=== PATIENT | female | born 1995 | race Caucasian/White ===

== ENCOUNTER 2017-03-04 23:05 | Inpatient (IN) | payer OTHER ==
[~2017-03-04] VITALS: Ht 162.6 cm; Wt 90.7 kg
[~2017-03-04 23:05] MED LIST: LYSTEDA650 M1 PO
[2017-03-04 23:58] LABS: ABSOLUTE BASOPHIL COUNT 0 /CUMM (0.0-0.2); ABSOLUTE EOSINOPHIL COUNT 0 /CUMM (0.0-0.7); ABSOLUTE GRANULOCYTE CT 7.8 /CUMM (1.4-6.5); ABSOLUTE LYMPH COUNT 2.1 /CUMM (1.2-3.4); ABSOLUTE MONOCYTE COUNT 0.6 /CUMM (0.10-0.60); BASOPHIL % 0.3 % (0.0-2.0); EOSINOPHIL % 0.4 % (0-5); GRANULOCYTE % 73.4 % (42.2-75.2); HEMATOCRIT 24.1 % (37-47); MEAN CORPUSCULAR HGB 19.3 PG (27.0-31.0); MEAN CORPUSCULAR HGB CONC 31.2 G/DL (33.0-37.0); MEAN CORPUSCULAR VOLUME 61.7 FL (81.0-99.0); MEAN PLATELET VOLUME 7.4 FL (7.4-10.4); PLATELET COUNT 287 /CUMM (130-400); RBC DISTRIBUTION WIDTH 17.8 % (11.5-14.5); RED BLOOD CELL CT 3.91 /CUMM (4.20-5.40); WHITE BLOOD CELL COUNT 10.6 /CUMM (4.8-10.8)
[2017-03-05 02:22] VITALS: BP 112/54
--- NOTE | 2017-03-05 05:10 | History & Physical ---
General Information and HPI MD Statement: I have seen and personally examined JOE MULLIGAN and documented this H&P. The patient is a 21 year old female at 39 weeks and 3 Days gestation who presented with a chief complaint of [CONTRACTIONS. REQUESTING . Source of Information: patient Exam Limitations: no limitations History of Present Illness: Pt is followed by Dr. Hernadez and arrived here in the ER she says sent there by Dr Hernadez who says she told them to go to [facility]. Pt is marlon and is 1 cm.vtx. Her section was for breech in [facility]. 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 Past Pregnancies Past Pregnancies: Date of Delivery: 08/2015 Gestational Age: 39 Length of Labor: 0 Weight: 7#8oz Anesthesia: spinal Place of Delivery: [facility] Complications: none Medical History Neurological: NONE EENT: NONE Cardiovascular: NONE Respiratory: NONE Gastrointestinal: NONE Hepatic: NONE Renal: NONE Musculoskeletal: NONE Psychiatric: NONE Endocrine: NONE Blood Disorders: anemia 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 Denies: chills, fever. EENTM: Denies: blurred vision, double vision, visual changes. Cardiovascular: Denies: chest pain. Respiratory: Denies: cough, short of breath. GI: Denies: diarrhea, nausea, vomiting. Neurological/Psychological: Denies: anxiety, depressed, headache. Exam & Diagnostic Data Last 24 Hrs of Vital Signs/I&O vss Vital Signs Date Time Temp Pulse Resp B/P B/P Pulse O2 O2 Flow FiO2 Mean Ox Delivery Rate 03/05 0222 112/54 Intake & Output 03/05 0800 03/05 0000 03/04 1600 Intake Total Output Total Balance Patient 200 lb Weight Obstetric Exam Wgt Gained During : poor ? a few pounds Pelvimetry: seems adequate Dilation (cm): 5 Effacement (%): 90 Station: 0 Membranes: SROM Fluid: clear Fundal Height (cm): 37 Multiple Gestation? No Contractions: q 3-4min Infant #1 - FHR Baseline: 150 Category: 1 Estimated Weight: 3700G Presentation: vtx Patient for Induction? No Physical Exam General Appearance Alert, Oriented X3, Cooperative, Mild Distress Skin No Breakdown Cardiovascular Regular Rate Lungs Clear to Auscultation Abdomen Soft Extremities No Edema Labs Blood Type & Rh: B NEG Antibody Screen: neg Hct/Hgb & Platelets #1: 33.3/10/297 Hct/Hgb & Platelets #2: 27.8/8.8/316 Rubella: imm VDRL #1: nr VDRL #2: nr HbsAg: neg HIV #1: nr HIV #2 nr 1 Hr P Group B Strep: unk Initial Ultrasound: unk Anatomy Ultrasound: unk Ultrasound for EFW: unk Genetic Testing: AFP negative CF neg Last 24 Hrs of Labs/Bi: Laboratory Tests 03/04/17 2335: CBC w Diff NO MAN DIFF REQ, RBC 3.91 L, MCV 61.7 L, MCH 19.3 L, RDW 17.8 H, MPV 7.4, Gran % 73.4, Lymphocytes % 20.1 L, Monocytes % 5.8, Eosinophils % 0.4, Basophils % 0.3, Absolute Granulocytes 7.8 H, Absolute Lymphocytes 2.1, Absolute Monocytes 0.6, Absolute Eosinophils 0, Absolute Basophils 0, PUBS MCHC 31.2 L, Urine Color YEL, Urine Clarity CLEAR, Urine pH 7.0, Ur Specific [place] 1.010, Urine Protein NEG, Urine Ketones NEG, Urine Nitrite NEG, Urine Bilirubin NEG, Urine Urobilinogen 0.2, Ur Leukocyte Esterase NEG, Ur Microscopic EXAM NOT REQUIRED, Urine Hemoglobin NEG, Urine Glucose NEG Assessment/Plan Assessment/Plan: consent on chart limited PNC Unknown GBS status Poor weight gain Anemia 2 units PRBC on hold As Ranked By This Provider Problem List: 1. Core Measures/Miscellaneous Venous Thromboembolism VTE Risk Factors: / VTE Contraindications: No Contraindications VTE Diagnosis: No Beta Ariel Is Beta Ariel a Home Med? No Antibiotics Is Patient on Antibiotics? No Attending MD Review Statement Attending Statement Attending MD Statement: examined this patient, discussed with family, discussed w/nursing
--- NOTE | 2017-03-05 09:20 | PN- OBGYN ---
Surgical Brief Attending Note Brief Attending Note: UPDATE: CANDIDATE PRESENTING IN LABOR, SROM,- UNKN GR B STR - ON ANTIBIOTICS CONTRACTIONS EVERY 3 TO 5 MINUTES FHR 130's CAT1 CX: 5 CM 80%, -1 STATION ADMISSION H/H 7.5/24 FOLLOWING EPIDURAL, BP DROPPED (BP 80-90/50, PULSE 100- 140 BPM) - REQUIRING 4 DOSES EPHEDRINE, 2 + LITERS CRYSTALLOID URINE OUTPUT: 400 ML OVER 5 HRS DISCUSSED PROFOUND ANEMIA IN A LABORING PT, WHO IS ALSO ATTEMPTING . WHO SHOWED HEMODYNAMIC INSTABILITY W/ PLACEMENT OF EPIDURAL. DISCUSSED THE NEED FOR TRANSFUSION OF 2 UNITS pRBCs (EACH OVER 2 HRs.) IN CASE OF ANY COMPLICATION - UTERINE RUPTURE, HEAVY BLEEDING @ DELIVERY - EITHER VAGINAL OR REPEAT CESARIAN SECTION, PP UTERINE ATONY, PT NEEDS A BETTER BASELINE BLOOD VOLUME TO WITHSTAND POSSIBLE ACUTE/ HEAVY BLOOD LOSS DURING THE LABOR / DELIVERY / PROCESS. PT AND FAMILY UNDERSTAND AND AGREE. ONCE 1ST UNIT IS TRANSFUSED, WILL PLACE AN IUPC TO SEE IF ADEQUATE CONTRACTIONS. IF INADEQUATE CONTRACTIONS THEN LOW DOSE PITOCIN AUGMENTATION Marialuisa PRADO MD
--- NOTE | 2017-03-05 14:10 | PN- OBGYN ---
Surgical Brief Attending Note Brief Attending Note: c/o vaginal pressure Pitocin 4 u/min contraction Q 3 minutes avge 270 montivedeo units/ 10 min FHR 140 -150 Cat1 CX 8 cm/ 80% / -1 progress in labor s/p 2 units p RBC- reassuring FHR re-top epidural raoul in 2 hrs Marialuisa Gamino MD
--- NOTE | 2017-03-05 18:20 | Labor & Delivery Summary ---
Delivery Summary : : vacuum Station/Position at Monica: - deep variables with pushing Indication: deep variables with pushing Episiotomy/Lacerations: Episiotomy/Lacerations: laceration - perineum introitus @ 3 o'clock, LT Periurethral Placenta: Placenta: spontanteous, normal, 3 vessel, long cord Cord PH Value: A 7.42, V 7.44 Baby's Weight: FEMALE 7#3oz Apgars - 1 Min: 8 Apgars - 5 Min: 9 Additional Comments: Pt presented in labor. PN care w/ a who attends @ [facility]. Pt wished to remain here for her attempt. (1st C/S for Breech). SROM here 03: 45. (unkn Gr B Str c/s to antibiotic tx started) Admission H/H was 7.5/24. With epidural she had decreased BP 80-90/50's and pulse 100 - 140 bpm. given 3 liters crystalloid. advised pt to take 2 units p RBCs to raise her H/H to a clinically accepted level. Pt understood and agreed. Pitocin augmentation w/ IUPC. Pt progressed to fully @ 16:27 and began pushing. with pushing baseline 140 - 150's but deep variables to 80- 90 bpm w/ slow recovery back to baseline- continued adequate variability. Pt progressed to +2/+3, varaibles now lasting 60 - 90 seconds. Vacuum applied- and with steady upward pressure easily delivered the infants head. Tight shoulders responder to a single screw manuever. delivery @ 17:15. Live Viable female WT 7# 3oz APGARS 8/9/9. A pH 7.42, V pH 7.44 LT periurethral laceration, and 2nd degree perineal laceration @ vaginal introitus @ 3:00 o'clock. Perineal lacerations repaired in layers. Placenta spontaneously delivered intact nl config 3 VC No cervical or vaginal lacerations EBL 350 ml TRANSFUSED 3RD UNIT PP FINAL HGB 8.7 Rh Neg BMI > 30 blood transfusion - candidate for Lovenox pp starting 6:00 03/06/2017
[2017-03-05 21:57] LABS: ABSOLUTE BASOPHIL COUNT 0 /CUMM (0.0-0.2); ABSOLUTE EOSINOPHIL COUNT 0 /CUMM (0.0-0.7); ABSOLUTE GRANULOCYTE CT 16.7 /CUMM (1.4-6.5); ABSOLUTE LYMPH COUNT 1.3 /CUMM (1.2-3.4); ABSOLUTE MONOCYTE COUNT 0.6 /CUMM (0.10-0.60); BASOPHIL % 0.2 % (0.0-2.0); EOSINOPHIL % 0 % (0-5); HEMATOCRIT 27.8 % (37-47); MEAN CORPUSCULAR HGB 20.6 PG (27.0-31.0); MEAN CORPUSCULAR HGB CONC 31.8 G/DL (33.0-37.0); MEAN PLATELET VOLUME 7.3 FL (7.4-10.4); PLATELET COUNT 244 /CUMM (130-400); RBC DISTRIBUTION WIDTH 20.2 % (11.5-14.5); RED BLOOD CELL CT 4.29 /CUMM (4.20-5.40)
[2017-03-05 22:13] LABS: GRANULOCYTE % 89.8 % (42.2-75.2); MEAN CORPUSCULAR VOLUME 64.8 FL (81.0-99.0); WHITE BLOOD CELL COUNT 18.6 /CUMM (4.8-10.8)
[2017-03-06 05:57] LABS: ABSOLUTE BASOPHIL COUNT 0 /CUMM (0.0-0.2); ABSOLUTE EOSINOPHIL COUNT 0 /CUMM (0.0-0.7); ABSOLUTE GRANULOCYTE CT 13.1 /CUMM (1.4-6.5); ABSOLUTE LYMPH COUNT 2.8 /CUMM (1.2-3.4); BASOPHIL % 0.2 % (0.0-2.0); EOSINOPHIL % 0.2 % (0-5); GRANULOCYTE % 77.1 % (42.2-75.2); HEMATOCRIT 27.9 % (37-47); MEAN CORPUSCULAR HGB 21.5 PG (27.0-31.0); MEAN CORPUSCULAR HGB CONC 31.5 G/DL (33.0-37.0); MEAN PLATELET VOLUME 7.7 FL (7.4-10.4); PLATELET COUNT 234 /CUMM (130-400); RBC DISTRIBUTION WIDTH 22.3 % (11.5-14.5); RED BLOOD CELL CT 4.08 /CUMM (4.20-5.40)
[2017-03-06 06:04] LABS: MEAN CORPUSCULAR VOLUME 68.3 FL (81.0-99.0)
[2017-03-06 09:42] LABS: ABSOLUTE BASOPHIL COUNT 0 /CUMM (0.0-0.2); ABSOLUTE EOSINOPHIL COUNT 0.1 /CUMM (0.0-0.7); ABSOLUTE GRANULOCYTE CT 12.1 /CUMM (1.4-6.5); ABSOLUTE LYMPH COUNT 2.2 /CUMM (1.2-3.4); ABSOLUTE MONOCYTE COUNT 0.7 /CUMM (0.10-0.60); BASOPHIL % 0.2 % (0.0-2.0); EOSINOPHIL % 0.4 % (0-5); GRANULOCYTE % 80.2 % (42.2-75.2); HEMATOCRIT 27.4 % (37-47); MEAN CORPUSCULAR HGB 21.3 PG (27.0-31.0); MEAN CORPUSCULAR HGB CONC 31.4 G/DL (33.0-37.0); MEAN CORPUSCULAR VOLUME 67.9 FL (81.0-99.0); MEAN PLATELET VOLUME 7.8 FL (7.4-10.4); PLATELET COUNT 233 /CUMM (130-400); RBC DISTRIBUTION WIDTH 22.6 % (11.5-14.5); RED BLOOD CELL CT 4.03 /CUMM (4.20-5.40); WHITE BLOOD CELL COUNT 15.1 /CUMM (4.8-10.8)
--- NOTE | 2017-03-06 10:00 | PN- Post Delivery/GYN ---
Subjective Subjective: pt is restingt in bed, c/o very tired and a little dizzy. tolerate diet, guaman in place, clear urine adequate amount. Review of Systems Constitutional: Reports: see HPI. EENTM: Reports: no symptoms. Cardiovascular: Reports: no symptoms. Respiratory: Reports: no symptoms. Gastrointestinal: Reports: no symptoms. Genitourinary: Reports: see HPI. Musculoskeletal: Reports: no symptoms. Skin: Reports: no symptoms. Hematologic/Endocrine: Reports: no symptoms. All Other Systems: Reviewed and Negative Objective Last 24 Hrs of Vital Signs/I&O VSS. CV RRR Lungs CTA B/L Abdomen: soft, nontender, uterus firm, fundus at umbilical level, mild lochia. Exrt: DCT (-) Current Medications: Current Medications Sig/Nicole Start time Last Medication Dose Route Stop Time Status Admin Acetaminophen 650 MG Q4P PRN 03/05 1800 AC 03/06 PO 0850 Bupivacaine HCl 10 ML ONCE ONE 03/05 1800 DC 03/05 SC 03/05 1801 1715 Docusate Sodium 100 MG BID PRN 03/05 1800 AC PO Enoxaparin Sodium 40 MG DAILY 03/06 0600 AC 03/06 SC 0757 Hydroxyzine HCl 100 MG AT BEDTIME NEED.. 03/05 1800 AC PO Ibuprofen 800 MG Q6P PRN 03/05 1800 AC 03/06 PO 0555 Ketorolac 30 MG ONCE ONE 03/05 1800 DC 03/05 Tromethamine IV 03/05 1801 1724 Lactated Ringer's 1,000 ML Q8H 03/05 0230 DC 03/05 IV 1210 Magnesium Hydroxide 30 ML DAILY PRN 03/05 1800 AC PO Methylergonovine 0.2 MG STAT STA 03/05 1751 DC 03/05 Maleate IM 03/05 1752 1725 Oxycodone/ 2 TAB Q4P PRN 03/05 2130 AC 03/06 Acetaminophen PO 0042 Oxycodone/ 1 TAB Q3P PRN 03/05 1800 AC 03/05 Acetaminophen PO 1959 Oxytocin 20 UNITS Q5H 03/05 1800 DC 03/05 Lactated Ringer's 1,000 ML IV 03/05 2259 1925 Oxytocin 30 UNITS PER PROTOCL 03/05 1015 DC 03/05 Lactated Ringer's 500 ML IV 03/06 1014 1010 Penicillin G 2.5 MU Q4H 03/05 0700 DC 03/05 Potassium IV 1525 Dextrose/Water 100 ML Last 24 Hrs of Labs/Bi: Laboratory Tests 03/06/17 0900: CBC w Diff NO MAN DIFF REQ, RBC 4.03 L, MCV 67.9 L, MCH 21.3 L, RDW 22.6 H, MPV 7.8, Gran % 80.2 H, Lymphocytes % 14.4 L, Monocytes % 4.8, Eosinophils % 0.4, Basophils % 0.2, Absolute Granulocytes 12.1 H, Absolute Lymphocytes 2.2, Absolute Monocytes 0.7 H, Absolute Eosinophils 0.1, Absolute Basophils 0, PUBS MCHC 31.4 L 03/06/17 0600: Kleihauer Cells Cancelled 03/06/17 0530: CBC w Diff NO MAN DIFF REQ, RBC 4.08 L, MCV 68.3 L, MCH 21.5 L, RDW 22.3 H, MPV 7.7, Gran % 77.1 H, Lymphocytes % 16.4 L, Monocytes % 6.1, Eosinophils % 0.2, Basophils % 0.2, Absolute Granulocytes 13.1 H, Absolute Lymphocytes 2.8, Absolute Monocytes 1.0 H, Absolute Eosinophils 0, Absolute Basophils 0, PUBS MCHC 31.5 L 03/05/17 2145: CBC w Diff NO MAN DIFF REQ, RBC 4.29, MCV 64.8 L, MCH 20.6 L, RDW 20.2 H, MPV 7.3 L, Gran % 89.8 H, Lymphocytes % 7.0 L, Monocytes % 3.0, Eosinophils % 0, Basophils % 0.2, Absolute Granulocytes 16.7 H, Absolute Lymphocytes 1.3, Absolute Monocytes 0.6, Absolute Eosinophils 0, Absolute Basophils 0, PUBS MCHC 31.8 L Microbiology 03/06 0645 URINE ROUT: Urine Culture - RECD Assessment/Plan Assessment/Plan 21 yo, s/p vaccum assisted , PPD #1 1.H/H stable. will monitor joseph 2. encourage ambulation , fall precaution 3. RT PP care
[2017-03-07 03:03] LABS: ABSOLUTE BASOPHIL COUNT 0 /CUMM (0.0-0.2); ABSOLUTE EOSINOPHIL COUNT 0.1 /CUMM (0.0-0.7); ABSOLUTE LYMPH COUNT 3.6 /CUMM (1.2-3.4); ABSOLUTE MONOCYTE COUNT 0.7 /CUMM (0.10-0.60); BASOPHIL % 0.3 % (0.0-2.0); EOSINOPHIL % 0.6 % (0-5); GRANULOCYTE % 71.3 % (42.2-75.2); HEMATOCRIT 27.6 % (37-47); MEAN CORPUSCULAR HGB 21.5 PG (27.0-31.0); MEAN CORPUSCULAR HGB CONC 31.3 G/DL (33.0-37.0); MEAN CORPUSCULAR VOLUME 68.6 FL (81.0-99.0); MEAN PLATELET VOLUME 7.6 FL (7.4-10.4); PLATELET COUNT 258 /CUMM (130-400); RBC DISTRIBUTION WIDTH 22.5 % (11.5-14.5); RED BLOOD CELL CT 4.03 /CUMM (4.20-5.40); WHITE BLOOD CELL COUNT 15.4 /CUMM (4.8-10.8)
[2017-03-07] MEDS ORDERED: PERCOCET 5-3251 EACH PO (15:04)
[2017-03-07] MEDS ORDERED: IBUPROFEN800 M1 PO (15:04)
[2017-03-07] MEDS ORDERED: BUTALB-ACETAMI1 EACH PO (15:05)
[2017-03-07] MEDS ORDERED: FERRALET 90 TA1 EACH PO (15:05)
--- NOTE | 2017-03-07 15:29 | PN- OBGYN ---
Surgical Brief Attending Note Brief Attending Note: PT IS S/P BLOOD PATCH. LAYING SUPINE IN BED. GARBER IS TOLERABLE . C/O BACK PRESSURE FROM PATCH. MINIMAL AMBULATION. +VOIDING, TOLERATING PAIN AND PO. PER NURSING , HAS BEEN TOLERATING PAIN WITH FIORICET AND MOTRIN. ATARAX AND PERCOCET WERE OVERLY SEDATING, AND CAUSED DIZZINESS. VB BETTER. +BREAST/BOTTLE Vital Signs Date Time Temp Pulse Resp B/P B/P Pulse O2 O2 Flow FiO2 Mean Ox Delivery Rate 03/05 222 112/54 Laboratory Tests 03/07/17 0245: CBC w Diff NO MAN DIFF REQ, RBC 4.03 L, MCV 68.6 L, MCH 21.5 L, RDW 22.5 H, MPV 7.6, Gran % 71.3, Lymphocytes % 23.3, Monocytes % 4.5, Eosinophils % 0.6, Basophils % 0.3, Absolute Granulocytes 11.0 H, Absolute Lymphocytes 3.6 H, Absolute Monocytes 0.7 H, Absolute Eosinophils 0.1, Absolute Basophils 0, PUBS MCHC 31.3 L Microbiology Date/Time Procedure - Status Source Growth 03/06 0645 Urine Culture - RES URINE ROUT Orders Procedure Date/time Status CBC WITHOUT DIFFERENTIAL 03/07 0600 Active CBC WITHOUT DIFFERENTIAL 03/07 0239 Complete Discharge Patient 03/07 UNK Active Regular Diet 03/06 D Active Regular Diet 03/06 B Complete CBC WITHOUT DIFFERENTIAL 03/06 0900 Complete CULTURE,URINE 03/06 0653 Active CBC WITHOUT DIFFERENTIAL 03/06 0600 Complete Cormier, Insertion/Removal/Asses 03/06 UNK Active Regular Diet 03/05 D Complete BLOOD PRODUCT PICKUP 03/05 2225 Active LEUKOCYTE POOR (PACKED CELLS) 03/05 2223 Active CBC WITHOUT DIFFERENTIAL 03/05 2126 Complete Pathway - chart 03/05 1756 Active Vital Signs 03/05 1756 Active Activity/Ambulation 03/05 1756 Active TRANSFER ORDERS 03/05 1750 Complete BLOOD PRODUCT PICKUP 03/05 1016 Active Misc Message 03/05 0752 Active BLOOD PRODUCT PICKUP 03/05 0750 Active CULTURE,URINE 03/05 0710 Complete LEUKOCYTE POOR (PACKED CELLS) 03/05 0338 Active Pathway - chart 03/05 0223 Active Admit to inpatient 03/05 223 Active Patient Data 03/05 223 Active Vital Signs 03/05 223 Complete OB: Monitoring 03/05 223 Complete Activity/Ambulation 03/05 223 Complete Childbirth Center Pt Data 03/05 UNK Active Cormier, Insertion/Removal/Asses 03/05 UNK Complete PHARMACY COMMUNICATION FORM 03/05 UNK Active URINALYSIS 03/04 2340 Complete CBC WITHOUT DIFFERENTIAL 03/04 2340 Complete TYPE & SCREEN (NOT X-MATCH) 03/04 2340 Complete A/P PPD2. S/P SUCCESSFUL . TRANSFUSED X 3 UNITS DUE TO SIGNIFICANT ANEMIA UPON PRESENTATION. HEMODYNAMICALLY STABLE. SPINAL GARBER. SEEMS MOST TOLERABLE WITH FIORICET AND MOTRIN. S/P BLOOD PATCH. CAN BE D/CD TO HOME IF TOLERATING GARBER AFTER A FEW HOURS OF OBSERVATION. QUESTIONS ANSWERED. DISCHARGE PRECAUTIONS ADVISED. IRON FOR ANEMIA PRESCRIBED.
== END 2017-03-07 17:15 | DRG 560 ==
LOC: CBCO 23:05 → GNO 03-05 01:56
PROVIDERS: Obstetrics & Gynecology; ADMIT Obstetrics & Gynecology
PROC: 10D07Z6 Extraction of Products of Conception, Vacuum, Via Natural or Artificial Opening (ICD-10-PCS; principal; 2017-03-05)
PROC: 0UQMXZZ Repair Vulva, External Approach (ICD-10-PCS; principal; 2017-03-05)
PROC: 0KQM0ZZ Repair Perineum Muscle, Open Approach (ICD-10-PCS; principal; 2017-03-05)
PROC: 30233N1 Transfusion of Nonautologous Red Blood Cells into Peripheral Vein, Percutaneous Approach (ICD-10-PCS; 2017-03-05)
PROC: 3E0R3GC Introduction of Other Therapeutic Substance into Spinal Canal, Percutaneous Approach (ICD-10-PCS; 2017-03-07)
DX: O76 Abnormality in fetal heart rate and rhythm complicating labor and delivery (principal); O71.82 Other specified trauma to perineum and vulva; O70.1 Second degree perineal laceration during delivery; O99.02 Anemia complicating childbirth; O74.5 Spinal and epidural anesthesia-induced headache during labor and delivery; O34.211 Maternal care for low transverse scar from previous cesarean delivery; N85.8 Other specified noninflammatory disorders of uterus; Z3A.39 39 weeks gestation of pregnancy; Z37.0 Single live birth
CPT/HCPCS: GNOP; GNOS; 36415; 81003; 86920; 87086; J1650; J1885; J2210; J7120; P9016

== ENCOUNTER 2017-03-14 14:50 | Inpatient (IN) | payer OTHER ==
[~2017-03-14] VITALS: Ht 162.6 cm; Wt 86.2 kg
[~2017-03-14 14:50] MED LIST changes: +BUTALB-ACETAMI1 EACH PO; +FERRALET 90 TA1 EACH PO; +IBUPROFEN800 M1 PO; +PERCOCET 5-3251 EACH PO
--- NOTE | 2017-03-14 14:56 | NUR ---
VAGINAL DELIVERY 9 DAYS AGO, PT C/O FEVER SINCE LAST NIGHT. TEMP IN TRIAGE 99.8. LAST MOTRIN AT 1000. PT STATES LOWER BACK PAIN AND H/A FROM EPIDURAL
--- NOTE | 2017-03-14 15:37 | NUR ---
PT TO ROOM 4 AWAITING EVAL AT THIS TIME.
--- NOTE | 2017-03-14 15:40 | ED GENERAL ADULT ---
History of Present Illness General Chief Complaint: Fever Stated Complaint: FEVER SINCE LAST NIGHT, [id number] Source: patient Exam Limitations: no limitations Vital Signs & Intake/Output Vital Signs & Intake/Output Vital Signs Date Time Temp Pulse Resp B/P B/P Pulse O2 O2 Flow FiO2 Mean Ox Delivery Rate 03/15 0029 101.1 / 0000 103.0 / 2332 103.0 108 24 116/58 96 Room Air 03/14 2023 99.1 84 18 116/66 99 Room Air 03/14 1826 100.4 120 18 103/56 98 Room Air 03/14 1624 99 Room Air 03/14 1455 99.8 133 20 135/84 97 Room Air ED Intake and Output 03/15 0000 06 1200 Intake Total 1000 Output Total Balance 1000 Intake, IV 1000 Patient 190 lb Weight Weight Reported by Patient Measurement Method Allergies Coded Allergies: No Known Allergies (02/17/16) Reconcile Medications Ibuprofen 800 MG TABLET 800 MG PO Q6P PRN UTERINE CRAMPING Iron Carb,Gl/FA/B12/C/Docusate (Ferralet 90 Tablet) 90 MG-1 MG-12 MCG-120 MG-50 MG TABLET 1 TAB PO DAILY ANEMIA Triage Note: VAGINAL DELIVERY 9 DAYS AGO, PT C/O FEVER SINCE LAST NIGHT. TEMP IN TRIAGE 99.8. LAST MOTRIN AT 1000. PT STATES LOWER BACK PAIN AND H/A FROM EPIDURAL Triage Nurses Notes Reviewed? 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 Flores who states that since her discharge from the emergency room 1 week ago she's been complaining of back pain persistent vaginal bleeding, 5 pads a day, abdominal pain increased frequency of urination and burning of urination and over the night patient developed a fever. Patient has positive for lightheaded sensation and dizziness. Denies any chest pain cough shortness of breath hemoptysis leg swelling. Patient can tolerate by mouth. Patient took ibuprofen prior to arrival. (FERMIN ROSAS,OVIIDO) Past History Travel History Traveled to [place] past 21 day No Medical History Any Pertinent Medical History? 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 No (OVIDIO CRAWFORD) Review of Systems Review of Systems Constitutional: Reports: see HPI, fever. EENTM: Reports: no symptoms. Respiratory: Reports: no symptoms. Cardiovascular: Reports: no symptoms. GI: Reports: see HPI, abdominal pain. Genitourinary: Reports: see HPI, discharge. Musculoskeletal: Reports: no symptoms. Skin: Reports: no symptoms. Neurological/Psychological: Reports: no symptoms. Hematologic/Endocrine: Reports: no symptoms. Immunologic/Allergic: Reports: no symptoms. All Other Systems: Reviewed and Negative (OVIDIO CRAWFORD) Physical Exam Physical Exam General Appearance: no apparent distress, alert, comfortable Comments: Well-developed well-nourished person in no acute distress HEENT: Normal EENT exam,. Neck: Supple, no lymphadenopathy, normal range of motion without pain or tenderness Back: right CVA tenderness. Cardiovascular: Regular rate and rhythms no murmurs rubs or gallops, normal JVP Respiratory: Chest nontender. No respiratory distress.breath sounds clear to auscultation bilaterally Abdomen: Suprapubic point tenderness noted, mild right lower quadrant pain noted , no appreciable organomegaly. Normal bowel sounds. No ascites Extremity: No edema, no calf tenderness to palpation, normal and equal pulses. Neuro: Alert oriented x3, motor sensory normal, Skin: No appreciable rash on exposed skin, skin is warm and dry. Psych: Mood and affect is normal, memory and judgment is normal. - noted mild active vaginal bleeding with mild vaginal swelling Core Measures ACS in differential dx? No CVA/TIA Diagnosis: No Severe Sepsis Present: No Septic Shock Present: No (OVIDIO CRAWFORD) Progress Differential Diagnoses I considered the following diagnoses in my evaluation of the patient: [ Appendicitis, UTI, pyelonephritis, sepsis, cellulitis, abscess, menorrhagia] Plan of Care: Orders Procedure Date/time Status Nothing by Mouth 03/15 B Active CBC WITHOUT DIFFERENTIAL 03/15 600 Active BASIC ELECTROLYTES PLUS BUN&CR 03/15 600 Active Regular Diet 03/14 D Complete Pathway - chart 03/14 2349 Active LACTIC ACID 03/14 2325 Complete Patient Data 03/14 2130 Active Saline Lock 03/14 2101 Active Misc Message 03/14 2101 Active ED Holding Orders 03/14 2101 Active Admit to inpatient 03/14 210 Active Vital Signs 03/14 2101 Active Code Status 03/14 210 Active CULTURE,URINE 03/14 1934 Active URINALYSIS 03/14 1934 Complete Straight Cath 03/14 1925 Active Straight Cath 03/14 1737 Active Intake & Output 03/14 1624 Active CULTURE,URINE 03/14 1549 Active BLOOD CULTURE 03/14 1549 Active URINALYSIS 03/14 1549 Complete LACTIC ACID 03/14 1549 Complete COMPREHENSIVE METABOLIC PANEL 03/14 1549 Complete CBC WITHOUT DIFFERENTIAL 03/14 1549 Complete House Staff 03/14 UNK Active VTE Mechanical Prophylaxis 03/14 UNK Active Current Medications Sig/Nicole Start time Last Medication Dose Stop Time Status Admin Ceftriaxone Sodium 1,000 MG 2100 03/15 2100 AC (Rocephin) Acetaminophen 650 MG Q6PRN PRN 03/15 0600 AC (Tylenol) Sodium Chloride 1,000 ML Q10H 03/14 2330 AC 03/15 (Normal Saline 0.9%) 0029 Laboratory Tests 03/15/17 0033: Lactic Acid 0.8 03/14/17 1944: Urine Color YEL, Urine Clarity CLEAR, Urine pH 6.0, Ur Specific [place] 1.020, Urine Protein 100 H, Urine Ketones NEG, Urine Nitrite POS H, Urine Bilirubin NEG, Urine Urobilinogen 0.2, Ur Leukocyte Esterase SMALL H, Ur Microscopic SEDIMENT EXAMINED, Urine RBC 1-3, Urine WBC PACKD H, Ur Epithelial Cells FEW, Urine Bacteria PACKD H, Urine Mucus MANY H, Urine Hemoglobin MOD H, Urine Glucose NEG 03/14/17 1849: Lactic Acid Cancelled 03/14/17 1611: Urine Color YEL, Urine Clarity HAZY H, Urine pH 6.0, Ur Specific [place] 1.020, Urine Protein 100 H, Urine Ketones NEG, Urine Nitrite POS H, Urine Bilirubin NEG, Urine Urobilinogen 0.2, Ur Leukocyte Esterase LARGE H, Ur Microscopic SEDIMENT EXAMINED, Urine RBC 25-50 H, Urine WBC 25-50 H, Ur Epithelial Cells MOD H, Urine Bacteria MANY H, Urine Hemoglobin LARGE H, Urine Glucose NEG 03/14/17 1607: Anion Gap 13, Estimated GFR > 60, BUN/Creatinine Ratio 20.0, Glucose 80, Lactic Acid 0.7, Calcium 9.2, Total Bilirubin 0.8, AST 30, ALT 51, Alkaline Phosphatase 186 H, Total Protein 7.6, Albumin 4.1, Globulin 3.5, Albumin/Globulin Ratio 1.2 , CBC w Diff MAN DIFF ORDERED, RBC 5.10, MCV 69.0 L, MCH 21.8 L, RDW 25.7 H, MPV 7.5, Gran % 86.0 H, Lymphocytes % 8.2 L, Monocytes % 5.5, Eosinophils % 0.3, Basophils % 0 L, Absolute Granulocytes 14.1 H, Segmented Neutrophils 81 H, Band Neutrophils 1, Absolute Lymphocytes 1.3, Lymphocytes 10 L, Monocytes 7, Absolute Monocytes 0.9 H, Eosinophils 1, Absolute Eosinophils 0.1, Absolute Basophils 0, Platelet Estimate VERIFIED BY SMEAR, Hypochromic-Microcytic 1+, Anisocytosis 2+, Microcytic Cells 1+, Ovalocytes RARE, PUBS MCHC 31.6 L, Fld Total RBCs Counted 100 Microbiology 03/14 1944 URINE ROUT: Urine Culture - RECD 03/14 1611 URINE ROUT: Urine Culture - RECD 03/14 1607 BLOOD: Blood Culture - RECD 03/14 1600 BLOOD: Blood Culture - RECD Patient currently on initial examination was no apparent distress however has concerns of pyelonephritis patient has positive CVA tenderness and suprapubic point tenderness minimal suspicion of appendicitis. Patient noted to be febrile and a straight catheter produced concerns of bacteriuria Patient had exacerbation of pain while in the emergency room and which morphine was administered and patient will be admitted to hospital staff. I discussed admission with [employer]ER[employer] CLEANER-Dr. Bennett who was aware (OVIDIO CRAWFORD) Initial ED EKG: none (OVIDIO CRAWFORD) Departure Departure Disposition: STILL A PATIENT Condition: Stable Clinical Impression Primary Impression: Pyelonephritis Secondary Impressions: Vaginal bleeding Referrals: AUDREY JAY (PCP/Family) Departure Forms: Customer Survey General Discharge Information Admission Note Spoke With: ABBEY TRUONG MD Documentation of Exam: Documentation of any treatments & extenuating circumstances including Concerns Regarding Discharge (functional status, medication knowledge or non-compliance, living conditions, etc.) that warrant an admission rather than observation: [ Discussed patient with Dr. TRUONG who agrees with general medicine admission for concerns of pyelonephritis was patient requires IV antibiotics, IV pain management, COMMERCIAL CLEANER consultation and antipyretics. (OVIDIO CRAWFORD) PA/MEDICAL DEVICE ENGINEER Co-Sign Statement Statement: ED Attending supervision documentation- [] I saw and evaluated the patient. I have also reviewed all the pertinent lab results and diagnostic results. I agree with the findings and the plan of care as documented in the PA's/MEDICAL DEVICE ENGINEER's documentation. [X] I have reviewed the ED Record and agree with the PA's/MEDICAL DEVICE ENGINEER's documentation. [] Additions or exceptions (if any) to the PAs/MEDICAL DEVICE ENGINEER's note and plan are summarized below: [] (MALIKA JEAN,MIN Huntley) Critical Care Note Critical Care Note Critical Care Time: non-applicable (OVIDIO CRAWFORD)
--- NOTE | 2017-03-14 16:17 | NUR ---
IV ESTABLISHED, [facility] CALLED FOR BREAST PUMP FOR PT, STATING THEY WILL SEE IF ONE CAN BE BROUGHT DOWN
--- NOTE | 2017-03-14 16:23 | NUR ---
[facility] BROUGHT PUMP DOWN FOR PT, PT STATING SHE IS UNFAMILIAR WITH HOW TO USE IT, [facility] STAFF STATING THEY WILL SEND RN DOWN TO ASSIST PT.
[2017-03-14 16:53] LABS: ABSOLUTE BASOPHIL COUNT 0 /CUMM (0.0-0.2); ABSOLUTE EOSINOPHIL COUNT 0.1 /CUMM (0.0-0.7); ABSOLUTE GRANULOCYTE CT 14.1 /CUMM (1.4-6.5); ABSOLUTE LYMPH COUNT 1.3 /CUMM (1.2-3.4); ABSOLUTE MONOCYTE COUNT 0.9 /CUMM (0.10-0.60); BASOPHIL % 0 % (0.0-2.0); EOSINOPHIL % 0.3 % (0-5); HEMATOCRIT 35.2 % (37-47); MEAN CORPUSCULAR HGB 21.8 PG (27.0-31.0); MEAN CORPUSCULAR HGB CONC 31.6 G/DL (33.0-37.0); MEAN PLATELET VOLUME 7.5 FL (7.4-10.4); PLATELET COUNT 360 /CUMM (130-400); RBC DISTRIBUTION WIDTH 25.7 % (11.5-14.5); WHITE BLOOD CELL COUNT 16.4 /CUMM (4.8-10.8)
--- NOTE | 2017-03-14 17:05 | NUR ---
[facility] STATING THEY WILL BE DOWN SHORTLY TO ASSIST PT IN PUMPING
--- NOTE | 2017-03-14 18:14 | NUR ---
PT'S FLUIDS FINISHED INFUSING, [facility] CALLED AGAIN, PT REQUESTING AN RN FROM [facility] COME DOWN TO ASSESS IF PATIENT IS USING BREAST PUMP APPROPRIATELY
--- NOTE | 2017-03-14 19:47 | NUR ---
STRAIGHT CATH PREFORMED BY . URINE TRIO OBTAINED AND SENT TO LAB
--- NOTE | 2017-03-14 21:10 | NUR ---
PT MEDICATED WITH 2ND LITER NS INFUSING PER EMAR
--- NOTE | 2017-03-14 22:09 | NUR ---
PT BED ASSIGNMENT [id number]
--- NOTE | 2017-03-14 22:12 | NUR ---
REPORT GIVEN TO KALEY COVARRUBIAS
--- NOTE | 2017-03-14 22:13 | NUR ---
DISTRIBUTION CALLED FOR TRANSPORT
--- NOTE | 2017-03-14 23:26 | History & Physical ---
MARYSugeyANDRIYAAKASH 03/14/17 2325: General Information and HPI MD Statement: I have seen and personally examined JOE MULLIGAN and documented this H&P. The patient is a 21 year old F who presented with a patient stated chief complaint of fever, back pain, vaginal discharge. Source of Information: patient, family Exam Limitations: no limitations History of Present Illness: Ms Mulligan is a 21 yr old woman who was known to be in her usual state of health until 4-5 days ago. She had a normal vaginal delivery of baby girl 9 days ago w/ a vaginal tear and no major complications. She has a past medical history of anemia. She came to the ED w/ a chief concern of fever, pain in the lower back, dysuria x 4-5 days duration. As per the pt, she had mild headache and backache post 9 days ago([facility]) secondary to epidural blood patch. Approximately 4 days ago, she started having worsening backache, located b/l sides, no radiation, severity 8/ 10-->4/10(improved now). Also reported dysuria, and increased frequency of urination around the same time. Reported increased vaginal bleeding since the time of delivery and no foul smelling discharge. Also reported fever x 1 day ago associated w/ chills and rigors. Also has assoicated lower abdominal pain, severity 4-5/10, no radiation, associates w/ the timing of breast feeding. No chest pain, palpitations, or shortness of breath. Allergies/Medications Allergies: Coded Allergies: No Known Allergies (02/17/16) Home Med list Ibuprofen 800 MG TABLET 800 MG PO Q6P PRN UTERINE CRAMPING Iron Carb,Gl/FA/B12/C/Docusate (Ferralet 90 Tablet) 90 MG-1 MG-12 MCG-120 MG-50 MG TABLET 1 TAB PO DAILY ANEMIA Compliance With Home Meds: GOOD Past History Travel History Traveled to [place] past 21 day No Medical History Neurological: NONE EENT: NONE Cardiovascular: NONE Respiratory: NONE Gastrointestinal: NONE Hepatic: NONE Renal: NONE Musculoskeletal: NONE Psychiatric: NONE Endocrine: NONE Blood Disorders: anemia Surgical History Surgical History: non-contributory Past Family/Social History Family History Relations & Conditions if any MOTHER (Diabetes). SON (sickle cell trait). Psychosocial History ETOH Use: denies use Illicit Drug Use: denies illicit drug use Functional Ability ADLs Independent: dressing, eating, toileting, bathing. Ambulation: independent Review of Systems Review of Systems Constitutional: Reports: see HPI, chills, fever. EENTM: Denies: blurred vision, visual changes. Cardiovascular: Denies: chest pain, orthopena, palpitations. Respiratory: Denies: cough, orthopnea, short of breath. GI: Reports: abdominal pain, nausea. Genitourinary: Denies: discharge. Musculoskeletal: Reports: back pain. Neurological/Psychological: Reports: headache. Denies: anxiety, numbness. Hematologic/Endocrine: Denies: bruising. Exam & Diagnostic Data Last 24 Hrs of Vital Signs/I&O Vital Signs Date Time Temp Pulse Resp B/P B/P Pulse O2 O2 Flow FiO2 Mean Ox Delivery Rate 03/15 0029 101.1 03/15 0000 103.0 03/14 2332 103.0 108 24 116/58 96 Room Air 03/14 2023 99.1 84 18 116/66 99 Room Air 03/14 1826 100.4 120 18 103/56 98 Room Air 03/14 1624 99 Room Air 03/14 1455 99.8 133 20 135/84 97 Room Air Intake & Output 03/15 0800 06/03 0000 06/02 1600 Intake Total 1000 Output Total Balance 1000 Intake, IV 1000 Patient 190 lb Weight Weight Reported by Patient Measurement Method Physical Exam General Appearance Alert, Oriented X3, Cooperative, No Acute Distress Skin No Rashes, No Breakdown, No Significant Lesion Skin Temp/Moisture Exam: Cool/Dry Sepsis Skin Exam (color): Normal for Ethnicity HEENT Atraumatic, PERRLA, EOMI, Mucous Membr. moist/pink Neck Supple, No JVD, No thryomegaly Lymphatic Cervical nl Cardiovascular Regular Rate, Normal S1, Normal S2, No Murmurs Lungs Normal Air Movement Abdomen Normal Bowel Sounds, Soft, supra pubic tenderness, left cva tenderness Neurological Normal Speech, Strength at 5/5 X4 Ext, Normal Tone, Sensation Intact, Cranial Nerves 3-12 NL, Reflexes 2+ Extremities No Clubbing, No Cyanosis, No Edema, Normal Pulses Vascular Pulses Symmetrical Body Front and Back (Adult) 1) left cva tenderness Last 24 Hrs of Labs/Bi: Laboratory Tests 03/15/17 0033: Lactic Acid Pending 03/14/171943: Urine Color YEL, Urine Clarity CLEAR, Urine pH 6.0, Ur Specific [place] 1.020, Urine Protein 100 H, Urine Ketones NEG, Urine Nitrite POS H, Urine Bilirubin NEG, Urine Urobilinogen 0.2, Ur Leukocyte Esterase SMALL H, Ur Microscopic SEDIMENT EXAMINED, Urine RBC 1-3, Urine WBC PACKD H, Ur Epithelial Cells FEW, Urine Bacteria PACKD H, Urine Mucus MANY H, Urine Hemoglobin MOD H, Urine Glucose NEG 03/14/17 1849: Lactic Acid Cancelled 03/14/17 1611: Urine Color YEL, Urine Clarity HAZY H, Urine pH 6.0, Ur Specific [place] 1.020, Urine Protein 100 H, Urine Ketones NEG, Urine Nitrite POS H, Urine Bilirubin NEG, Urine Urobilinogen 0.2, Ur Leukocyte Esterase LARGE H, Ur Microscopic SEDIMENT EXAMINED, Urine RBC 25-50 H, Urine WBC 25-50 H, Ur Epithelial Cells MOD H, Urine Bacteria MANY H, Urine Hemoglobin LARGE H, Urine Glucose NEG 03/14/17 1607: Anion Gap 13, Estimated GFR > 60, BUN/Creatinine Ratio 20.0, Glucose 80, Lactic Acid 0.7, Calcium 9.2, Total Bilirubin 0.8, AST 30, ALT 51, Alkaline Phosphatase 186 H, Total Protein 7.6, Albumin 4.1, Globulin 3.5, Albumin/Globulin Ratio 1.2 , CBC w Diff MAN DIFF ORDERED, RBC 5.10, MCV 69.0 L, MCH 21.8 L, RDW 25.7 H, MPV 7.5, Gran % 86.0 H, Lymphocytes % 8.2 L, Monocytes % 5.5, Eosinophils % 0.3, Basophils % 0 L, Absolute Granulocytes 14.1 H, Segmented Neutrophils 81 H, Band Neutrophils 1, Absolute Lymphocytes 1.3, Lymphocytes 10 L, Monocytes 7, Absolute Monocytes 0.9 H, Eosinophils 1, Absolute Eosinophils 0.1, Absolute Basophils 0, Platelet Estimate VERIFIED BY SMEAR, Hypochromic-Microcytic 1+, Anisocytosis 2+, Microcytic Cells 1+, Ovalocytes RARE, PUBS MCHC 31.6 L, Fld Total RBCs Counted 100 Microbiology 03/14 1944 URINE ROUT: Urine Culture - RECD 03/14 161 URINE ROUT: Urine Culture - RECD 03/14 1607 BLOOD: Blood Culture - RECD 03/14 1600 BLOOD: Blood Culture - RECD Diagnostic Data Other Results CT abdomen and pelvis Assessment/Plan Assessment: She is a young woman who is post day 9 who is being evaluated for fever, dysuria, back pain likely from pyelonephritis. At the time of admission, temperature 99.8, pulse rate 133 (improved to 84), respiratory rate 18, blood pressure 135/84, pulse ox-97% room air. Findings indicated leukocytosis WBC 16.4 (with 86% granulocytosis), hemoglobin 11.1 ( baseline 8.6), platelets 360, normal electrolytes and renal function-sodium 140, potassium 4.0, bicarbonate 25, serum creatinine 0.7, anion gap 13. Lactic acid 0.7. Liver function tests AST 30, ALT 51, alkaline phosphatase 186 (slightly elevated likely because of ). Urinalysis-clear, protein elevated, urinary nitrites elevated, leukocyte esterase very minimal, pyuria. Blood cultures and urine cultures are pending at this time. Differential diagnosis: #1 pyelonephritis #2 cystitis #3 r/o pelvic inflammatory disease Below is the problem list and plan: #1 fever, back pain, dysuria-patient has been started on ceftriaxone, pending culture results. To rule out any pelvic inflammatory disease, CAT scan abdomen with contrast has been ordered. IV Tylenol for fever. Anti-inflammatory as needed for back pain. Since the patient was , [employer] program consultant has been notified. Follow lactic acid, and leukocytosis. Sepsis of urologic origin, which needs to be followed closely. #2 anemia-continue to monitor closely at this time. Patient has a history of vaginal bleeding. If it drops any further, may have to type and crossmatch for blood transfusion. #3 DVT prophylaxis-alps. As Ranked By This Provider Problem List: 1. Vaginal bleeding 2. Pyelonephritis 3. Menorrhagia Core Measures/Miscellaneous Acute Coronary Syndrome ACS Diagnosis: No Cerebrovascular Accident CVA/TIA Diagnosis: No Congestive Heart Failure CHF Diagnosis: No Venous Thromboembolism VTE Risk Factors: Age > 40 No Mech VTE prophylaxis d/t: No contraindications No VTE Pharm Prophylaxis d/t: No contraindications VTE Diagnosis: No VTE Type: NONE VTE Confirmed by (Test): NONE Severe Sepsis Severe Sepsis Present: No Septic Shock Septic Shock Present: No Miscellaneous Documentation Attending Case Discussed With: DIONNEABBEY BROWNING MD Primary Care Physician: AUDREY JAY RADHA Patient sees these Specialists Dr. Barnes Level of Patient Care: General Medicine CHRISTIANO JEAN,[facility] 03/14/17 2343: Resident Review Statement Resident Statement: examined this patient, discussed with internal controls consultant, agreed with internal controls consultant, discussed with family Other Findings: The patient is a 21-year-old woman with a past medical history of anemia. She presented to the emergency room complaining of transient peripartum bleeding of a week's duration and fever of one day duration. The patient was in her usual state of health and had a vaginal delivery 9 days days prior to presentation. The delivery was complicated by a vaginal tear and also involved epidural anesthesia and an epidural patch. However patient complained of persistent headaches and back pain since after the procedure and required a blood patch. Since the blood patch she continued to experience bakc pain and headacde. She also noted some light red bleeding. About 4 days ago she started to have worsening bilateral back pain with dysuria and frequency. Day prior to presentation, yesterday she developed a fever and chills. She also noticed lower abdominal pain and had an episode of vomiting today. Physical exam showed general: Young woman shivering, not in respiratory distress. Chest: Clear to auscultation. Cardiovascular: Regular rate and rhythm, S1-S2 normal. Abdomen: Left CVA tenderness positive. Specific tenderness positive. Abdomen is soft with normal bowel sounds. Extremities: Warm, no pedal edema, normal pulses. Significant labs show white blood cell count of 16.4, hemoglobin of 11.1, platelets of 360, monocytes 86%, bands 1%. Lactic acid was negative at 0.7. Basic electrolyte profile shows Sodium potassium and creatinine all within normal limits. Urinalysis is dirty. Assessment 1. Pyelonephritis 2. Cystitis 3. bleeding 4. Concern for endometritis or pelvic abscess 5. Anemia Plan * Admit to general medicine * Blood cultures 2, urine cultures * Continue IV ceftriaxone 1 g daily * By mouth Tylenol 650 mg using When necessary for mild pain or fever * IV morphine 4 mg Q 4 prn for moderate to severe pain * Repeat lactic acid was negative at 0.8 * IV normal saline at 100 mL an hour * Monitor CBC and BEP in a.m. * [employer] consult in a.m. for post bleeding * CT abdomen and pelvis with IV contrast to investigate possible endometritis or pelvic abscess * DVT prophylaxis with Alps due to anemia * Patient is full code ABBEY TRUONG 03/15/17 0355: Attending MD Review Statement Attending Statement Attending MD Statement: examined this patient, discuss w/resident/PA/DRUM PLATER, agreed w/resident/PA/DRUM PLATER, discussed with family, reviewed EMR data (avail), reviewed images, amended to note Attending Assessment/Plan: CC: Fever since last night PMH: None , 9 days , spontaneous normal vaginal delivery with epidural and he required episiotomy/laceration (left periurethral laceration and second- degree perineal laceration), received 3 units blood transfusion. Had developed headache after epidural anesthesia SBP blood patch which resolved 2 days back. Approximately 4 days back patient noticed worsening backache, mid area bilaterally, nonradiating. It was worse yesterday associated with fever and chills and increased frequency and burning in urination. Also she is noticing increased vaginal bleeding but no foul-smelling discharge. She also has lower abdominal pain, moderate, non-radiating. Denies any chest pain, cough, expectoration, sore throat, nasal congestion. She has still some mild headache and light bothers her. Vitals: Tmax 103.0, tachycardia, RR 20s, blood pressure 135/84, saturating well on room air On exam: A O 3, cooperative, anxious, mild distress, covered with many blankets , rigors, neck supple, JVD normal, no lymphadenopathy, mucosa moist, no focal neurological deficit, no neck rigidity, pupils equal round reactive. No dependent edema, no obvious skin rashes or inflammation CVS: S1-S2, RRR. RS: Clear to auscultate bilaterally. Abdomen: Soft, moderate suprapubic tenderness, ND, bowel sounds present. CVA tenderness more on left side. examination: No obvious foul-smelling pus discharge, erythematous vulva. Labs: WBC 16.4, neutrophils 86%, band 1, hemoglobin 11.1, BMP and LFT unremarkable, lactate 0.7. UA positive for nitrites, large leukocyte esterase, moderate hemoglobin, [address] abdomen pelvis with IV contrast: 1. Although there is no definite bladder wall thickening, mild adjacent inflammatory changes are noted. Correlate for cystitis. Unremarkable appearance of the kidneys. 2. Prominent uterus with somewhat heterogeneous attenuation. This may be secondary to the phase of cycle. No adnexal mass. A and P 21 year old female with no significant past medical history , 9 days presented with high-grade fever, chills, dysuria, frequency urination with low back pain and suprapubic pain. On examination has moderate suprapubic tenderness and left CVA tenderness without any obvious inflammation or infection. She is found to have leukocytosis, UTI on UA. CT abdomen and pelvis was obtained to rule out any other pelvic inflammatory diseases. + Pyelonephritis + 9 days + Headache probably secondary to epidural - Admit to general medicine - Urine culture, blood culture - Trend lactate - IV hydration - IV ceftriaxone - [employer] consult - DVT prophylaxis with Lovenox - Continue iron and folic acid supplementation Note: growing GNR in anaerobic bottle, ?puerperal sepsis : please add metronidazole
[2017-03-14 23:32] VITALS: BP 116/58
--- NOTE | 2017-03-15 01:39 | CT SCAN REPORT ---
EXAMINATION: CT ABDOMEN AND PELVIS WITH CONTRAST CLINICAL INFORMATION: Fever and chills. Flank pain. Vaginal discharge. Pyelonephritis versus uterine infection. COMPARISON: None TECHNIQUE: Multidetector volumetric imaging was performed of the abdomen and pelvis before and after the IV administration of 95 mL of Optiray 320 intravenous contrast. Sagittal and coronal reformatted images were obtained on the technologist's workstation. DLP: 620 mGy-cm FINDINGS: LUNG BASES: The visualized lung bases are unremarkable. LIVER, GALLBLADDER, AND BILIARY TREE: The liver is normal in size, shape, and attenuation. No focal hepatic lesion or biliary ductal dilatation is present. The gallbladder is unremarkable with no evidence of radiopaque gallstones, gallbladder wall thickening, or obvious pericholecystic inflammatory changes. PANCREAS: Unremarkable. SPLEEN: Unremarkable. ADRENAL GLANDS: Unremarkable. KIDNEYS AND URETERS: The kidneys are normal in size, shape, and attenuation. No hydronephrosis, hydroureter, or calculi seen. No perinephric stranding. BLADDER: The bladder is somewhat decompressed. There is no wall thickening. Mild adjacent inflammatory changes are noted. GASTROINTESTINAL TRACT: The stomach and small bowel are unremarkable. No dilated loops of bowel or evidence of obstruction. Normal appendix. No colonic wall thickening or inflammatory change. ABDOMINAL WALL: Diastases of the rectus musculature with eventration of the ventral abdominal wall. LYMPH NODES: Normal. VASCULAR: Unremarkable. PELVIC VISCERA: The uterus is enlarged and heterogeneous. No adnexal mass. OSSEOUS STRUCTURES: No acute or suspicious osseous abnormality. IMPRESSION: 1. Although there is no definite bladder wall thickening, mild adjacent inflammatory changes are noted. Correlate for cystitis. Unremarkable appearance of the kidneys. 2. Prominent uterus with somewhat heterogeneous attenuation. This may be secondary to the phase of cycle. No adnexal mass.
--- NOTE | 2017-03-15 03:56 | Admission Certification ---
Admission Certification Certification Statement - As attending physician, I certify that at the time of - admission, based on clinical presentation, severity of - symptoms, need for further diagnostic testing and - therapeutic interventions, and risk of adverse outcomes - without in-hospital treatment, in my clinical assessment, - this patient requires an acute hospital stay for a minimum - of two nights or longer. I have also considered psychsocial - factors such as support system, advanced age, financial - issues, cognitive issues, and failed out-patient treatments, - past re-admission history, safety of patient, and lack of - compliance as applicable. Specific rationale supporting this admission is: Pyelonephritis
--- NOTE | 2017-03-15 05:05 | NUR ---
LATE ENTRY: PT ARRIVED TO FLOOR VIA STRETCHER WITH DISTRIBUTION STAFF. A/OX3, RA, IVF PER ORDER, PAIN 9/10(SEE EMAR), T 103 (SEE EMAR). ALPS PER ORDER, FAMILY AT BEDSIDE FOR SUPPORT. CALL [facility] IN REACH. WILL CONTINUE TO MONITOR.
[2017-03-15 06:49] VITALS: BP 122/66
--- NOTE | 2017-03-15 08:04 | PN- Housestaff ---
Subjective Follow-up For: UTI with sepsis Complaints: severe headache, blurry vision, pain in the back, nausea Subjective: Patient is seen and examined at the bedside. She was complaining of severe headache and blurry vision. She was also complaining of nausea and pain in the belly. Review of Systems Constitutional: Reports: no symptoms, fever, malaise, weakness. Cardiovascular: Denies: chest pain. Respiratory: Denies: cough, short of breath. Gastrointestinal: Denies: abdominal pain, bloating, constipation, diarrhea. Genitourinary: Reports: dysuria, frequency. Musculoskeletal: Reports: back pain. Skin: Denies: no symptoms. Objective Last 24 Hrs of Vital Signs/I&O Vital Signs Date Time Temp Pulse Resp B/P B/P Pulse O2 O2 Flow FiO2 Mean Ox Delivery Rate 03/15 1550 100.0 88 18 108/60 96 Room Air 03/15 0720 98.5 03/15 0649 100.5 90 20 122/66 96 03/15 0621 100.3 03/15 0200 98.4 / 0029 101.1 06/ 0000 103.0 06/03 0000 98.4 / 2332 103.0 108 24 116/58 96 Room Air 06/ 2023 99.1 84 18 116/66 99 Room Air / 1826 100.4 120 18 103/56 98 Room Air Intake & Output 03/15 1600 03/15 0800 06/03 0000 Intake Total 1000 1660 1000 Output Total 800 850 Balance 429 316 3478 Intake, IV 650 1200 1000 Intake, Oral 350 460 Output, Urine 800 850 Patient 86.183 kg Weight Physical Exam General Appearance: Alert, Oriented X3, Cooperative, No Acute Distress Skin: No Rashes, No Breakdown, No Significant Lesion Neck: Supple, No JVD Cardiovascular: Normal S1, Normal S2 Lungs: Clear to Auscultation, Normal Air Movement Abdomen: Soft, deep tendon is on the left side at costovertebral junction Neurological: Normal Speech Extremities: No Clubbing, No Cyanosis, No Edema Current Medications: Current Medications Sig/Nicole Start time Last Medication Dose Route Stop Time Status Admin Acetaminophen 1,000 MG Q6P PRN 03/15 1500 AC N/A 1 UNIT IV Acetaminophen 650 MG Q6PRN PRN 03/15 0600 AC /03 PO 0621 Acetaminophen 1,000 MG ONCE ONE 03/14 2330 DC 03/15 N/A 1 UNIT IV 03/14 2344 0000 Ceftriaxone Sodium 1,000 MG 2100 03/15 2100 AC IV Ceftriaxone Sodium 0 .STK-MED ONE 03/14 2048 DC .ROUTE Ceftriaxone Sodium 1,000 MG ONCE ONE 03/14 2045 DC 03/14 IV 03/14 Cyanocobalamin 1,000 MCG DAILY 03/15 1000 AC 03/15 PO 0839 Docusate Sodium 100 MG DAILY NEEDED PRN 03/15 1615 AC PO Ferrous Sulfate 325 MG BID 03/15 1000 AC 03/15 PO 0839 Folic Acid 1 MG DAILY 03/15 1000 AC 03/15 PO 0839 Ketorolac 30 MG ONCE ONE 03/14 1745 DC 03/14 Tromethamine IV 03/14 1746 1735 Ketorolac 0 .STK-MED ONE 03/14 173 DC Tromethamine .ROUTE Metronidazole 500 MG Q8 03/15 0600 AC 03/15 N/A 1 UNIT IV 1523 Morphine Sulfate 4 MG Q4P PRN 03/15 0830 DC 03/15 IV 0839 Morphine Sulfate 2 MG ONCE ONE 03/14 2230 DC 03/14 IV 03/14 2231 2244 Ondansetron HCl 4 MG ONCE ONE 03/15 1000 DC 03/15 IV 03/15 1001 1004 Ondansetron HCl 4 MG Q8P PRN 03/15 1000 AC PO Polyethylene Glycol 17 GM DAILY 03/15 1603 AC PO Sodium Chloride 1,000 ML Q10H 03/14 2330 AC 03/15 IV 1522 Sodium Chloride 1,000 ML BOLUS ONE 03/14 2045 DC 03/14 IV 03/14 2144 2110 Sodium Chloride 1,000 ML BOLUS ONE 03/14 1600 DC 03/14 IV 03/14 1659 1626 Last 24 Hrs of Lab/Bi Results Last 24 Hrs of Labs/Mics: Laboratory Tests 03/15/17 0604: Anion Gap 11, Estimated GFR > 60, BUN/Creatinine Ratio 17.1, CBC w Diff NO MAN DIFF REQ, RBC 4.34, MCV 69.5 L, MCH 21.8 L, RDW 25.9 H, MPV 7.8, Gran % 81.9 H, Lymphocytes % 11.0 L, Monocytes % 6.7, Eosinophils % 0.1, Basophils % 0.3, Absolute Granulocytes 12.1 H, Absolute Lymphocytes 1.6, Absolute Monocytes 1.0 H, Absolute Eosinophils 0, Absolute Basophils 0, PUBS MCHC 31.3 L 03/15/17 0033: Lactic Acid 0.8 03/14/171943: Urine Color YEL, Urine Clarity CLEAR, Urine pH 6.0, Ur Specific [place] 1.020, Urine Protein 100 H, Urine Ketones NEG, Urine Nitrite POS H, Urine Bilirubin NEG, Urine Urobilinogen 0.2, Ur Leukocyte Esterase SMALL H, Ur Microscopic SEDIMENT EXAMINED, Urine RBC 1-3, Urine WBC PACKD H, Ur Epithelial Cells FEW, Urine Bacteria PACKD H, Urine Mucus MANY H, Urine Hemoglobin MOD H, Urine Glucose NEG 03/14/17 1849: Lactic Acid Cancelled Microbiology 03/14 1944 URINE ROUT: Urine Culture - RES GRAM NEGATIVE RODS Assessment/Plan Assessment: Patient is a 21-year-old female with history of normal vaginal delivery s/p post , x 9 days, presented with chief complaints of fever, lower back pain, dysuria since 4-5 days Vital signs-temperature 100 point 5, pulse 90, respiration 20, blood pressure 122/66, SPO2 96% on room air CT abdomen and pelvis-probable cystitis/endometritis Plan - Pyelonephritis with septicemia - * We will continue IV antibiotic-ceftriaxone/metronidazole * Urine culture and blood culture is growing gram-negative rods, we'll follow the sensitivity * Tylenol when necessary for fever and pain * Avoid opiates for pain as it may transfer to breastmilk and affect the * If fever persists for next 24-hour, then we will reconsider for antibiotic and if needed and ID consult * We will continue IV fluids * Strict intake output charting * Zofran as needed for nausea * Vital signs every shift Headache under evaluation Patient is complaining of generalized headache since 9 days and it is associated with blurring of the vision.In state, patient usually have a hypercoagulable state that maybe chances of CVT or it may be due to ongoing septicemia and meningitis, can be due to epidural injection followed by a blood patch during the delivery. * We will watch for the symptoms. If needed, then CT of head or CT venogram * Tylenol/NSAIDs as needed Diet-regular diet DVT prophylaxis-ALP S/heparin CODE STATUS-full code Problem List: 1. Pyelonephritis 2. septicemia Pain Ratin Pain Location: Head, right costovertebral junction Pain Goal: Remain pain free Pain Plan: [id number], otherwise opiate medication as they can transfer to the breast milk and affect the Tomorrow's Labs & Rationales: CBC, BEP for follow-up with septicemia
[2017-03-15 08:24] LABS: MEAN PLATELET VOLUME 7.8 FL (7.4-10.4)
[2017-03-15 09:02] LABS: ABSOLUTE EOSINOPHIL COUNT 0 /CUMM (0.0-0.7)
[2017-03-15 09:09] LABS: ABSOLUTE GRANULOCYTE CT 12.1 /CUMM (1.4-6.5); ABSOLUTE LYMPH COUNT 1.6 /CUMM (1.2-3.4); MEAN CORPUSCULAR VOLUME 69.5 FL (81.0-99.0)
[2017-03-15 09:25] LABS: ABSOLUTE BASOPHIL COUNT 0 /CUMM (0.0-0.2); BASOPHIL % 0.3 % (0.0-2.0); EOSINOPHIL % 0.1 % (0-5); GRANULOCYTE % 81.9 % (42.2-75.2); MEAN CORPUSCULAR HGB 21.8 PG (27.0-31.0); MEAN CORPUSCULAR HGB CONC 31.3 G/DL (33.0-37.0); PLATELET COUNT 304 /CUMM (130-400); RBC DISTRIBUTION WIDTH 25.9 % (11.5-14.5); RED BLOOD CELL CT 4.34 /CUMM (4.20-5.40); WHITE BLOOD CELL COUNT 14.8 /CUMM (4.8-10.8)
[2017-03-15 09:27] LABS: HEMATOCRIT 30.2 % (37-47)
--- NOTE | 2017-03-15 11:24 | Cons- OBGYN ---
General Information and HPI Consulting Request Date of Consult: 03/15/17 Requested By: ABBEY TRUONG MD Reason for Consult: post pt admitted for pylonephritis Source of Information: patient, old records Exam Limitations: no limitations History of Present Illness: Pt is 9 days S/P was transfused during labor as prophylaxis since she was anemic and a candidate. Pt suscusfully underwent with small vaginal laceration. Urine C+S during delivery visit was negative there was no GBS cultures done and therefor no gbs prophylaxis. Pt returned for a presumed spinal headache and recieved a blood patch in the ER. 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 Pt still complains of flank pain there is a normal lochia non-foul smelling and an involuting uterus. Allergies/Medications Allergies: Coded Allergies: No Known Allergies (02/17/16) Home Med List: Ibuprofen 800 MG TABLET 800 MG PO Q6P PRN UTERINE CRAMPING Iron Carb,Gl/FA/B12/C/Docusate (Ferralet 90 Tablet) 90 MG-1 MG-12 MCG-120 MG-50 MG TABLET 1 TAB PO DAILY ANEMIA Current Medications: Current Medications Sig/Nicole Start time Last Medication Dose Route Stop Time Status Admin Acetaminophen 650 MG Q6PRN PRN 03/15 0600 AC 03/15 PO 0621 Acetaminophen 1,000 MG ONCE ONE 03/14 2330 DC 03/15 N/A 1 UNIT IV 03/14 2344 0000 Ceftriaxone Sodium 1,000 MG 2100 03/15 2100 AC IV Ceftriaxone Sodium 0 .STK-MED ONE 03/14 2048 DC .ROUTE Ceftriaxone Sodium 1,000 MG ONCE ONE 03/14 2045 DC 03/14 IV 03/14 2046 204 Cyanocobalamin 1,000 MCG DAILY 03/15 1000 AC 03/15 PO 0839 Ferrous Sulfate 325 MG BID 03/15 1000 AC 03/15 PO 0839 Folic Acid 1 MG DAILY 03/15 1000 AC 03/15 PO 0839 Ketorolac 30 MG ONCE ONE 03/14 1745 DC 03/14 Tromethamine IV 03/14 1746 1735 Ketorolac 0 .STK-MED ONE 03/14 1737 DC Tromethamine .ROUTE Metronidazole 500 MG Q8 03/15 0600 AC 03/15 N/A 1 UNIT IV 0621 Morphine Sulfate 4 MG Q4P PRN 03/15 0830 AC 03/15 IV 0839 Morphine Sulfate 2 MG ONCE ONE 03/14 2230 DC 06/ IV / 2231 2244 Morphine Sulfate 4 MG ONCE ONE 03/14 1600 DC IV / 1601 Ondansetron HCl 4 MG ONCE ONE 03/15 1000 DC 06/ IV 03/15 1001 1004 Ondansetron HCl 4 MG Q8P PRN 03/15 1000 AC PO Sodium Chloride 1,000 ML Q10H 03/14 2330 AC 03/15 IV 0029 Sodium Chloride 1,000 ML BOLUS ONE 03/14 2045 DC / IV / 2144 2110 Sodium Chloride 1,000 ML BOLUS ONE 03/14 1600 DC 06/ IV / 1659 1626 Past History Medical History Blood Transfusion Hx: No Neurological: NONE EENT: NONE Cardiovascular: NONE Respiratory: NONE Gastrointestinal: NONE Hepatic: NONE Renal: NONE Musculoskeletal: NONE Psychiatric: NONE Endocrine: NONE Blood Disorders: anemia Surgical History Pertinent Surgical History: non-contributory Family History Relations & Conditions If Any: MOTHER (Diabetes). SON (sickle cell trait). Psychosocial History Where Do You Live? Home Services at Home: None Smoking Status: Never Smoked ETOH Use: denies use Illicit Drug Use: denies illicit drug use Functional Ability ADLs Independent: dressing, eating, toileting, bathing. Ambulation: independent Review of Systems Review of Systems Constitutional: Denies: chills, fever. EENTM: Denies: blurred vision, double vision, visual changes. Cardiovascular: Denies: chest pain. Respiratory: Denies: cough. GI: Reports: see HPI. Denies: nausea, vomiting. Genitourinary: Reports: frequency, pain. Musculoskeletal: Reports: back pain. Neurological/Psychological: Reports: headache. Denies: anxiety, depressed. Hematologic/Endocrine: Denies: bruising. Exam & Diagnostic Data Vital Signs and I&O Vital Signs Date Time Temp Pulse Resp B/P B/P Pulse O2 O2 Flow FiO2 Mean Ox Delivery Rate 03/15 0720 98.5 03/15 0649 100.5 90 20 122/66 96 03/15 0621 100.3 03/15 0200 98.4 03/15 0029 101.1 03/15 0000 103.0 03/15 0000 98.4 03/14 2332 103.0 108 24 116/58 96 Room Air 03/143 99.1 84 18 116/66 99 Room Air 03/14 1826 100.4 120 18 103/56 98 Room Air 03/14 1624 99 Room Air 03/14 1455 99.8 133 20 135/84 97 Room Air Intake & Output 03/15 1600 03/15 0800 03/15 0000 03/14 1600 03/14 0800 03/14 0000 Intake Total 1660 1000 Output Total 850 Balance 810 1000 Intake, IV 1200 1000 Intake, Oral 460 Output, Urine 850 Patient 190 lb 190 lb Weight Weight Reported by Patient Measurement Method Physical Exam General Appearance: well developed/nourished, alert, awake, mild distress Head: atraumatic Respiratory: lungs clear Cardiovascular: regular rate/rhythm Breasts Breast appear nl Gastrointestinal: normal bowel sounds, soft, mild abdominal tenderness fundus not palpable Extremities: no edema Skin: warm/dry Reproductive: Normal female genitalia Pelvic: defered Other Physical Findings: bilateral CVAT L>R Last 24 Hours of Labs: Laboratory Tests 03/15 03/15 0604 0033 Chemistry Sodium (137 - 145 mmol/L) 140 Potassium (3.5 - 5.1 mmol/L) 3.7 Chloride (98 - 107 mmol/L) 106 Carbon Dioxide (22 - 30 mmol/L) 22 Anion Gap (5 - 16) 11 BUN (7 - 17 mg/dL) 12 Creatinine (0.5 - 1.0 mg/dL) 0.7 Estimated GFR (>60 ml/min) > 60 BUN/Creatinine Ratio (7 - 25 %) 17.1 Lactic Acid (0.7 - 2.1 mmol/L) 0.8 Hematology CBC w Diff NO MAN DIFF REQ WBC (4.8 - 10.8 /CUMM) 14.8 H RBC (4.20 - 5.40 /CUMM) 4.34 Hgb (12.0 - 16.0 G/DL) 9.5 L Hct (37 - 47 %) 30.2 L MCV (81.0 - 99.0 FL) 69.5 L MCH (27.0 - 31.0 PG) 21.8 L RDW (11.5 - 14.5 %) 25.9 H Plt Count (130 - 400 /CUMM) 304 MPV (7.4 - 10.4 FL) 7.8 Gran % (42.2 - 75.2 %) 81.9 H Lymphocytes % (20.5 - 51.1 %) 11.0 L Monocytes % (1.7 - 9.3 %) 6.7 Eosinophils % (0 - 5 %) 0.1 Basophils % (0.0 - 2.0 %) 0.3 Absolute Granulocytes (1.4 - 6.5 /CUMM) 12.1 H Absolute Lymphocytes (1.2 - 3.4 /CUMM) 1.6 Absolute Monocytes (0.10 - 0.60 /CUMM) 1.0 H Absolute Eosinophils (0.0 - 0.7 /CUMM) 0 Absolute Basophils (0.0 - 0.2 /CUMM) 0 PUBS MCHC (33.0 - 37.0 G/DL) 31.3 L 03/14 03/14 194 1849 Chemistry Lactic Acid Cancelled Urines Urine Color (YEL,AMB,STR) YEL Urine Clarity (CLEAR) CLEAR Urine pH (5.0 - 8.0) 6.0 Ur Specific [place] (1.001 - 1.035) 1.020 Urine Protein (NEG,<30 MG/DL) 100 H Urine Ketones (NEG) NEG Urine Nitrite (NEG) POS H Urine Bilirubin (NEG) NEG Urine Urobilinogen (0.1 - 1.0 EU/dl) 0.2 Ur Leukocyte Esterase (NEG) SMALL H Ur Microscopic SEDIMENT EXAMINED Urine RBC (0 - 5 /HPF) 1-3 Urine WBC (0 - 2 /HPF) PACKD H Ur Epithelial Cells (NONE,FEW) FEW Urine Bacteria (NEG/NONE) PACKD H Urine Mucus (FEW,NONE) MANY H Urine Hemoglobin (NEG) MOD H Urine Glucose (N MG/DL) NEG 03/14 1611 Urines Urine Color (YEL,AMB,STR) YEL Urine Clarity (CLEAR) HAZY H Urine pH (5.0 - 8.0) 6.0 Ur Specific [place] (1.001 - 1.035) 1.020 Urine Protein (NEG,<30 MG/DL) 100 H Urine Ketones (NEG) NEG Urine Nitrite (NEG) POS H Urine Bilirubin (NEG) NEG Urine Urobilinogen (0.1 - 1.0 EU/dl) 0.2 Ur Leukocyte Esterase (NEG) LARGE H Ur Microscopic SEDIMENT EXAMINED Urine RBC (0 - 5 /HPF) 25-50 H Urine WBC (0 - 2 /HPF) 25-50 H Ur Epithelial Cells (NONE,FEW) MOD H Urine Bacteria (NEG/NONE) MANY H Urine Hemoglobin (NEG) LARGE H Urine Glucose (N MG/DL) NEG 03/14 1607 Chemistry Sodium (137 - 145 mmol/L) 140 Potassium (3.5 - 5.1 mmol/L) 4.0 Chloride (98 - 107 mmol/L) 102 Carbon Dioxide (22 - 30 mmol/L) 25 Anion Gap (5 - 16) 13 BUN (7 - 17 mg/dL) 14 Creatinine (0.5 - 1.0 mg/dL) 0.7 Estimated GFR (>60 ml/min) > 60 BUN/Creatinine Ratio (7 - 25 %) 20.0 Glucose (65 - 99 mg/dL) 80 Lactic Acid (0.7 - 2.1 mmol/L) 0.7 Calcium (8.4 - 10.2 mg/dL) 9.2 Total Bilirubin (0.2 - 1.3 mg/dL) 0.8 AST (14 - 36 U/L) 30 ALT (9 - 52 U/L) 51 Alkaline Phosphatase (<127 U/L) 186 H Total Protein (6.3 - 8.2 g/dL) 7.6 Albumin (3.5 - 5.0 g/dL) 4.1 Globulin (1.9 - 4.2 gm/dL) 3.5 Albumin/Globulin Ratio (1.1 - 2.2 %) 1.2 Hematology CBC w Diff MAN DIFF ORDERED WBC (4.8 - 10.8 /CUMM) 16.4 H RBC (4.20 - 5.40 /CUMM) 5.10 Hgb (12.0 - 16.0 G/DL) 11.1 L Hct (37 - 47 %) 35.2 L MCV (81.0 - 99.0 FL) 69.0 L MCH (27.0 - 31.0 PG) 21.8 L RDW (11.5 - 14.5 %) 25.7 H Plt Count (130 - 400 /CUMM) 360 MPV (7.4 - 10.4 FL) 7.5 Gran % (42.2 - 75.2 %) 86.0 H Lymphocytes % (20.5 - 51.1 %) 8.2 L Monocytes % (1.7 - 9.3 %) 5.5 Eosinophils % (0 - 5 %) 0.3 Basophils % (0.0 - 2.0 %) 0 L Absolute Granulocytes (1.4 - 6.5 /CUMM) 14.1 H Segmented Neutrophils (42.2 - 75.2 %) 81 H Band Neutrophils (0.0 - 5.0 %) 1 Absolute Lymphocytes (1.2 - 3.4 /CUMM) 1.3 Lymphocytes (20.5 - 51.1 %) 10 L Monocytes (1.7 - 9.3 %) 7 Absolute Monocytes (0.10 - 0.60 /CUMM) 0.9 H Eosinophils (0 - 5.0 %) 1 Absolute Eosinophils (0.0 - 0.7 /CUMM) 0.1 Absolute Basophils (0.0 - 0.2 /CUMM) 0 Platelet Estimate (ADEQUATE) VERIFIED BY SMEAR Hypochromic-Microcytic 1+ Anisocytosis 2+ Microcytic Cells 1+ Ovalocytes RARE PUBS MCHC (33.0 - 37.0 G/DL) 31.6 L Other Body Source Fld Total RBCs Counted (%) 100 Assessment/Plan Assessment/Plan 21 yo 9 days S/P with fairly suddenl onset fever chills flank pain with chronic symptoms of headache and vaginal bleeding. Urinanalysis positive for nitrites packed bacteria and WBC, positive blood cultures for GNR, CT shows normal involuting uterus and normal kidneys. No foul smelling lochia or history of long labor or prolonged ROM. Probable pylonephritis with GNR bacteremia Doubt endometritis at this point if pt does not respond to Flagyl and ceftriaxone in 48 hours would add GBS coverage. Problem List: 1. Pyelonephritis Consult Acknowledgment - Thank you for your consult request. Attending MD Review Statement Attending Statement Attending MD Statement: examined this patient, discuss w/resident/PA/MANAGER IT SECURITY, discussed with family
--- NOTE | 2017-03-15 14:14 | PN- Att Addend ---
Attending Addendum Attending Brief Note Patient seen and examined, not feeling so well. Still complains of pain in the lower abdomen and lower back especially on the left side. She is also complaining of headache.Patient had recent child vaginal delivery 10 days ago. Vital Signs Date Time Temp Pulse Resp B/P B/P Pulse O2 O2 Flow FiO2 Mean Ox Delivery Rate 03/15 0720 98.5 / 0649 100.5 90 20 122/66 96 / 0621 100.3 / 0200 98.4 / 0029 101.1 06/ 0000 103.0 06/ 0000 98.4 06/ 2332 103.0 108 24 116/58 96 Room Air / 2023 99.1 84 18 116/66 99 Room Air / 1826 100.4 120 18 103/56 98 Room Air / 1624 99 Room Air / 1455 99.8 133 20 135/84 97 Room Air on exam; aox3, nad cv; s1,s2, rrr resp; clear abd; soft, tender in lower abd, bs+ ext; no edema, Laboratory Tests 03/15 03/15 0604 0033 Chemistry Sodium (137 - 145 mmol/L) 140 Potassium (3.5 - 5.1 mmol/L) 3.7 Chloride (98 - 107 mmol/L) 106 Carbon Dioxide (22 - 30 mmol/L) 22 Anion Gap (5 - 16) 11 BUN (7 - 17 mg/dL) 12 Creatinine (0.5 - 1.0 mg/dL) 0.7 Estimated GFR (>60 ml/min) > 60 BUN/Creatinine Ratio (7 - 25 %) 17.1 Lactic Acid (0.7 - 2.1 mmol/L) 0.8 Hematology CBC w Diff NO MAN DIFF REQ WBC (4.8 - 10.8 /CUMM) 14.8 H RBC (4.20 - 5.40 /CUMM) 4.34 Hgb (12.0 - 16.0 G/DL) 9.5 L Hct (37 - 47 %) 30.2 L MCV (81.0 - 99.0 FL) 69.5 L MCH (27.0 - 31.0 PG) 21.8 L RDW (11.5 - 14.5 %) 25.9 H Plt Count (130 - 400 /CUMM) 304 MPV (7.4 - 10.4 FL) 7.8 Gran % (42.2 - 75.2 %) 81.9 H Lymphocytes % (20.5 - 51.1 %) 11.0 L Monocytes % (1.7 - 9.3 %) 6.7 Eosinophils % (0 - 5 %) 0.1 Basophils % (0.0 - 2.0 %) 0.3 Absolute Granulocytes (1.4 - 6.5 /CUMM) 12.1 H Absolute Lymphocytes (1.2 - 3.4 /CUMM) 1.6 Absolute Monocytes (0.10 - 0.60 /CUMM) 1.0 H Absolute Eosinophils (0.0 - 0.7 /CUMM) 0 Absolute Basophils (0.0 - 0.2 /CUMM) 0 PUBS MCHC (33.0 - 37.0 G/DL) 31.3 L 03/14 03/14 1944 1849 Chemistry Lactic Acid Cancelled Urines Urine Color (YEL,AMB,STR) YEL Urine Clarity (CLEAR) CLEAR Urine pH (5.0 - 8.0) 6.0 Ur Specific [place] (1.001 - 1.035) 1.020 Urine Protein (NEG,<30 MG/DL) 100 H Urine Ketones (NEG) NEG Urine Nitrite (NEG) POS H Urine Bilirubin (NEG) NEG Urine Urobilinogen (0.1 - 1.0 EU/dl) 0.2 Ur Leukocyte Esterase (NEG) SMALL H Ur Microscopic SEDIMENT EXAMINED Urine RBC (0 - 5 /HPF) 1-3 Urine WBC (0 - 2 /HPF) PACKD H Ur Epithelial Cells (NONE,FEW) FEW Urine Bacteria (NEG/NONE) PACKD H Urine Mucus (FEW,NONE) MANY H Urine Hemoglobin (NEG) MOD H Urine Glucose (N MG/DL) NEG 03/14 1611 Urines Urine Color (YEL,AMB,STR) YEL Urine Clarity (CLEAR) HAZY H Urine pH (5.0 - 8.0) 6.0 Ur Specific [place] (1.001 - 1.035) 1.020 Urine Protein (NEG,<30 MG/DL) 100 H Urine Ketones (NEG) NEG Urine Nitrite (NEG) POS H Urine Bilirubin (NEG) NEG Urine Urobilinogen (0.1 - 1.0 EU/dl) 0.2 Ur Leukocyte Esterase (NEG) LARGE H Ur Microscopic SEDIMENT EXAMINED Urine RBC (0 - 5 /HPF) 25-50 H Urine WBC (0 - 2 /HPF) 25-50 H Ur Epithelial Cells (NONE,FEW) MOD H Urine Bacteria (NEG/NONE) MANY H Urine Hemoglobin (NEG) LARGE H Urine Glucose (N MG/DL) NEG 03/14 1607 Chemistry Sodium (137 - 145 mmol/L) 140 Potassium (3.5 - 5.1 mmol/L) 4.0 Chloride (98 - 107 mmol/L) 102 Carbon Dioxide (22 - 30 mmol/L) 25 Anion Gap (5 - 16) 13 BUN (7 - 17 mg/dL) 14 Creatinine (0.5 - 1.0 mg/dL) 0.7 Estimated GFR (>60 ml/min) > 60 BUN/Creatinine Ratio (7 - 25 %) 20.0 Glucose (65 - 99 mg/dL) 80 Lactic Acid (0.7 - 2.1 mmol/L) 0.7 Calcium (8.4 - 10.2 mg/dL) 9.2 Total Bilirubin (0.2 - 1.3 mg/dL) 0.8 AST (14 - 36 U/L) 30 ALT (9 - 52 U/L) 51 Alkaline Phosphatase (<127 U/L) 186 H Total Protein (6.3 - 8.2 g/dL) 7.6 Albumin (3.5 - 5.0 g/dL) 4.1 Globulin (1.9 - 4.2 gm/dL) 3.5 Albumin/Globulin Ratio (1.1 - 2.2 %) 1.2 Hematology CBC w Diff MAN DIFF ORDERED WBC (4.8 - 10.8 /CUMM) 16.4 H RBC (4.20 - 5.40 /CUMM) 5.10 Hgb (12.0 - 16.0 G/DL) 11.1 L Hct (37 - 47 %) 35.2 L MCV (81.0 - 99.0 FL) 69.0 L MCH (27.0 - 31.0 PG) 21.8 L RDW (11.5 - 14.5 %) 25.7 H Plt Count (130 - 400 /CUMM) 360 MPV (7.4 - 10.4 FL) 7.5 Gran % (42.2 - 75.2 %) 86.0 H Lymphocytes % (20.5 - 51.1 %) 8.2 L Monocytes % (1.7 - 9.3 %) 5.5 Eosinophils % (0 - 5 %) 0.3 Basophils % (0.0 - 2.0 %) 0 L Absolute Granulocytes (1.4 - 6.5 /CUMM) 14.1 H Segmented Neutrophils (42.2 - 75.2 %) 81 H Band Neutrophils (0.0 - 5.0 %) 1 Absolute Lymphocytes (1.2 - 3.4 /CUMM) 1.3 Lymphocytes (20.5 - 51.1 %) 10 L Monocytes (1.7 - 9.3 %) 7 Absolute Monocytes (0.10 - 0.60 /CUMM) 0.9 H Eosinophils (0 - 5.0 %) 1 Absolute Eosinophils (0.0 - 0.7 /CUMM) 0.1 Absolute Basophils (0.0 - 0.2 /CUMM) 0 Platelet Estimate (ADEQUATE) VERIFIED BY SMEAR Hypochromic-Microcytic 1+ Anisocytosis 2+ Microcytic Cells 1+ Ovalocytes RARE PUBS MCHC (33.0 - 37.0 G/DL) 31.6 L Other Body Source Fld Total RBCs Counted (%) 100 A/P; 21 f with recent child , vaginal delevery who is admited with sepsis, UTI. Concern for endometritis, peurperal sepsis, GNR bacteremia. Currentlyy treated with CTX and flagyl. 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 If no improvement, will involve ID. Follow Urine cx. WBC slightly better, Fever spike down. Can use Ibuprofen and tylenol for headache, she is also ordered morphine which she does not like. DVT px: ALPs. D/W at bedside.
[2017-03-15 15:50] VITALS: BP 108/60
[2017-03-15 22:29] VITALS: BP 110/68
[2017-03-16 06:54] VITALS: BP 110/62
--- NOTE | 2017-03-16 08:12 | PN- Housestaff ---
WHITNEY DOMINGUEZ 03/16/17 0812: Subjective Follow-up For: Urinary tract infection Cystitis Gram-negative septicemia Complaints: pain scale (0-10) Subjective: Patient was seen and examined at bedside. She is alert awake and oriented to time place and person. Patient reports bilateral headaches, 6 out of 10 pain. Also reports left flank pain which is a new pain according to the patient Tylenol and Toradol helping for headache and flank pain. Still reports burning micturition, dysuria. Denies any fever, chills, frequency, urgency, suprapubic tenderness. Denies any chest pain, difficulty breathing, racing heart. Vitals were stable this morning. He remained afebrile with blood pressure 110/ 62, saturating at 96 on room air Review of Systems Constitutional: Denies: chills, diaphoresis, fever, malaise, weakness. Objective Last 24 Hrs of Vital Signs/I&O Vital Signs Date Time Temp Pulse Resp B/P B/P Pulse O2 O2 Flow FiO2 Mean Ox Delivery Rate 03/16 0654 98.2 70 20 110/62 96 03/15 2229 99.0 80 20 110/68 97 Room Air 03/15 1550 100.0 88 18 108/60 96 Room Air Intake & Output 03/16 1600 03/16 0800 03/16 0000 Intake Total 1650 930 Output Total 450 Balance 1650 480 Intake, IV 1200 450 Intake, Oral 450 480 Output, Urine 450 Physical Exam General Appearance: Alert, Oriented X3, Cooperative, No Acute Distress Skin: No Rashes, No Breakdown HEENT: Atraumatic, PERRLA, EOMI, Mucous Membr. moist/pink Neck: Supple, No JVD Lymphatic: Cervical nl Cardiovascular: Normal S1, Normal S2 Lungs: Normal Air Movement Abdomen: Normal Bowel Sounds, Soft, left CVA tenderness Extremities: No Clubbing, No Cyanosis, No Edema Vascular: Normal Pulses Current Medications: Current Medications Sig/Nicole Start time Last Medication Dose Route Stop Time Status Admin Acetaminophen 650 MG .STK-MED ONE 03/16 0010 DC PO 03/16 0011 Acetaminophen 1,000 MG Q6P PRN 03/15 1500 AC 03/15 N/A 1 UNIT IV 2000 Acetaminophen 650 MG Q6PRN PRN 03/15 0600 AC 03/16 PO 0011 Ceftriaxone Sodium 1,000 MG 2100 03/15 2100 AC 03/15 IV 2136 Cyanocobalamin 1,000 MCG DAILY 03/15 1000 AC 03/16 PO 0913 Docusate Sodium 100 MG DAILY NEEDED PRN 03/15 1615 AC 03/16 PO 0914 Ferrous Sulfate 325 MG BID 03/15 1000 AC 03/16 PO 0913 Folic Acid 1 MG DAILY 03/15 1000 AC 03/16 PO 0913 Ketorolac 30 MG ONCE ONE 03/16 0400 DC 03/16 Tromethamine IV 03/16 0401 0411 Metronidazole 500 MG Q8 03/15 0600 AC 03/16 N/A 1 UNIT IV 0515 Morphine Sulfate 4 MG Q4P PRN 03/15 0830 DC 03/15 IV 0839 Ondansetron HCl 4 MG Q8P PRN 03/15 1000 AC PO Polyethylene Glycol 17 GM DAILY 03/15 1603 AC 03/16 PO 0913 Sodium Chloride 1,000 ML Q10H 03/14 2330 AC 03/16 IV 0515 Last 24 Hrs of Lab/Bi Results Last 24 Hrs of Labs/Mics: Laboratory Tests 03/16/17 0745: Anion Gap 7, Estimated GFR > 60, BUN/Creatinine Ratio 13.3, CBC w Diff NO MAN DIFF REQ, RBC 4.05 L, MCV 69.5 L, MCH 21.8 L, RDW 25.6 H, MPV 7.5, Gran % 73.3, Lymphocytes % 19.1 L, Monocytes % 6.8, Eosinophils % 0.5, Basophils % 0.3 , Absolute Granulocytes 7.9 H, Absolute Lymphocytes 2.1, Absolute Monocytes 0.7 H, Absolute Eosinophils 0.1, Absolute Basophils 0, PUBS MCHC 31.3 L Assessment/Plan Assessment: Patient is a 21-year-old female with history of normal vaginal delivery s/p post , x 9 days, presented with chief complaints of fever, lower back pain, dysuria since 4-5 days Vital signs-temperature 100 point 5, pulse 90, respiration 20, blood pressure 122/66, SPO2 96% on room air CT abdomen and pelvis-probable cystitis/endometritis Plan - cystitis with septicemia - * continue IV antibiotic-ceftriaxone/metronidazole * Urine culture and blood culture is growing gram-negative rods, we'll follow the sensitivity * Concern for endometritis, peurperal sepsis, GNR bacteremia. * Tylenol when necessary for fever and pain * Toradol for moderate to severe pain * Avoid opiates for pain as it may transfer to breastmilk and affect the * We will continue IV fluids * Strict intake output charting * Zofran as needed for nausea * Vital signs every shift * Remained afebrile overnight * WBC count trending down Headache under evaluation Patient is complaining of generalized headache since 9 days and it is associated with blurring of the vision.In state, patient usually have a hypercoagulable state that maybe chances of CVT or it may be due to ongoing septicemia and meningitis, can be due to epidural injection followed by a blood patch during the delivery. * We will watch for the symptoms. If needed, then CT of head or CT venogram * Tylenol/NSAIDs as needed Diet-regular diet DVT prophylaxis-ALP S/heparin CODE STATUS-full code Problem List: 1. Pyelonephritis 2. septicemia Pain Ratin Pain Location: left flank pain headache Pain Goal: Remain pain free Pain Plan: tylinol torodol Tomorrow's Labs & Rationales: WALLY Madison MD 03/16/17 1351: Attending MD Review Statement Attending Statement Attending MD Statement: examined this patient, discuss w/resident/PA/ANIMAL CARE SPECIALIST, agreed w/resident/PA/ANIMAL CARE SPECIALIST, discussed with family, reviewed EMR data (avail), discussed with nursing, discussed with case mgmt, reviewed images, amended to note Attending Assessment/Plan: Patient seen and examined, not feeling better. Although fever spikes are down in her leukocytosis is improving. Now she's complaining of excruciating pain in the left flank area. She was feeling nauseous and still had the headache. She claims that after her epidural injection during Paula delivery, she developed severe migraine headache and received a blood patch. The migraine resolved initially. She thinks that the migraine is coming back. She claims that she has taken Fioricet in the past and that seemed to help. She does not get any relief of headache with Tylenol but Toradol does help. She does not want to take morphine. At this point her urine culture is growing Escherichia coli. We 'll continue current antibiotics and follow-up on the blood cultures. If patient continues to improve likely in the next 24 to 48-hour period we will switch antibiotics to oral. Please stop the IV Tylenol and give a trial of Fioricet for headache. Continue sputum Tylenol for fever or flank pain. Currently patient is dumping the breast milk.
[2017-03-16 08:25] LABS: ABSOLUTE BASOPHIL COUNT 0 /CUMM (0.0-0.2); ABSOLUTE EOSINOPHIL COUNT 0.1 /CUMM (0.0-0.7); ABSOLUTE GRANULOCYTE CT 7.9 /CUMM (1.4-6.5); ABSOLUTE LYMPH COUNT 2.1 /CUMM (1.2-3.4); ABSOLUTE MONOCYTE COUNT 0.7 /CUMM (0.10-0.60); BASOPHIL % 0.3 % (0.0-2.0); EOSINOPHIL % 0.5 % (0-5); GRANULOCYTE % 73.3 % (42.2-75.2); HEMATOCRIT 28.2 % (37-47); MEAN CORPUSCULAR HGB 21.8 PG (27.0-31.0); MEAN CORPUSCULAR HGB CONC 31.3 G/DL (33.0-37.0); MEAN CORPUSCULAR VOLUME 69.5 FL (81.0-99.0); MEAN PLATELET VOLUME 7.5 FL (7.4-10.4); PLATELET COUNT 308 /CUMM (130-400); RBC DISTRIBUTION WIDTH 25.6 % (11.5-14.5); RED BLOOD CELL CT 4.05 /CUMM (4.20-5.40); WHITE BLOOD CELL COUNT 10.8 /CUMM (4.8-10.8)
--- NOTE | 2017-03-16 11:32 | PN- OBGYN ---
Surgical Brief Attending Note Brief Attending Note: HD #2 10 days S/P responding to abx for pyelonephritis WBC down to 10.8 HCT stable 28.2% T max 100.0 pt C/O nausea vomited once still with headache and left flank pain uterus firm lochia serosanganous pt feels lochia is heavy CT showed no retained POC. imp responding to rx. consider pelvic ultrasound and methergine if bleeding increases. will follow
--- NOTE | 2017-03-16 14:30 | NUR ---
LATE ENTRY: PT C/O WHOLE BODY WEAKNESS- FEELS IT IS DUE TO THE IV ABX HANGING. PT HAS HAD MULTIPLE DOSES OF FLAGYL BUT IS WORRIED IT IS FROM THE ABX. PT HAS POOR PO INTAKE, HAS A UTI AND IS WELL. EDUCATION PROVIDED. DR. DOMINGUEZ CONTACTED AND UP TO SEE PT. REPORTED TO KALEY SMITH THAT IV FLAGYL MAY BE RESUMED. KALEY SMITH TO FOLLOW.
[2017-03-16 14:46] VITALS: BP 112/68
[2017-03-16 22:52] VITALS: BP 110/68
[2017-03-17 06:50] VITALS: BP 102/68
--- NOTE | 2017-03-17 07:26 | PN- Housestaff ---
See Addendum Subjective Follow-up For: UTI with gram-negative septicemia secondary to Escherichia coli Complaints: headaches, abdominal pain, itching while peeing, Subjective: Patient is seen and examined at the bedside. She was complaining of headache but is better than before, she was complaining of occasional photophobia. He also complained about pain in the right side of the abdomen, especially on deep palpation and lower abdomen. He does not have fever since last evening. Her appetite has been improving. Review of Systems Constitutional: Reports: no symptoms, weakness. Gastrointestinal: Reports: abdominal pain, bloating, nausea, vomiting. Genitourinary: Reports: dysuria, frequency, pain, urgency. Neurological/Psychological: Reports: headache. Objective Last 24 Hrs of Vital Signs/I&O Vital Signs Date Time Temp Pulse Resp B/P B/P Pulse O2 O2 Flow FiO2 Mean Ox Delivery Rate 03/17 0650 97.6 50 20 102/68 96 / 2252 98.5 68 20 110/68 97 Room Air 03/16 1935 98.4 03/16 1915 98.4 / 1836 100.7 06/ 1754 100.9 / 1641 99.9 / 1446 98.3 84 20 112/68 98 Room Air Intake & Output 03/17 1600 / 0800 06 0000 Intake Total 600 450 Output Total Balance 600 450 Intake, IV 600 450 Physical Exam General Appearance: Alert, Oriented X3, Cooperative, No Acute Distress Cardiovascular: Normal S1, Normal S2 Lungs: Clear to Auscultation, Normal Air Movement Abdomen: Soft, deep tenderness on the right side of the abdomen and lower abdomen Neurological: Normal Gait, Normal Speech Extremities: No Clubbing, No Cyanosis, No Edema Vascular: Normal Pulses, Pulses Symmetrical Current Medications: Current Medications Sig/Nicole Start time Last Medication Dose Route Stop Time Status Admin Acetaminophen 650 MG .STK-MED ONE 03/17 0253 DC PO 03/17 0254 Acetaminophen 1,000 MG ONCE ONE 03/16 1815 DC 03/16 N/A 1 UNIT IV 03/16 1829 1836 Acetaminophen 1,000 MG Q6P PRN 03/15 1500 DC 03/15 N/A 1 UNIT IV 2000 Acetaminophen 650 MG Q6PRN PRN 03/15 0600 AC 03/17 PO 0253 Acetaminophen/ 1 TAB Q4P PRN 03/16 1545 AC 03/16 Butalbital/Caffeine PO 1603 Ceftriaxone Sodium 1,000 MG 2100 03/15 2100 AC 03/16 IV 2135 Cyanocobalamin 1,000 MCG DAILY 03/15 1000 AC 03/17 PO 1118 Docusate Sodium 100 MG DAILY NEEDED PRN 03/15 1615 AC 03/16 PO 0914 Ferrous Sulfate 325 MG BID 03/15 1000 AC 03/17 PO 1118 Fluconazole 150 MG ONCE ONE 03/17 1145 DC 03/17 PO 03/17 1146 1248 Folic Acid 1 MG DAILY 03/15 1000 AC 03/17 PO 1118 Ketorolac 15 MG ONCE ONE 03/17 0215 DC Tromethamine IV 03/17 0216 Ketorolac 15 MG ONCE ONE 03/17 0215 DC 03/17 Tromethamine IV 03/17 0216 0231 Metronidazole 500 MG Q8 03/15 0600 DE 03/17 N/A 1 UNIT IV 0621 Ondansetron HCl 4 MG Q6P PRN 03/16 1430 03/16 IV 1443 Ondansetron HCl 4 MG Q8P PRN 03/15 1000 DC 03/16 PO 1056 Patient Medication 1 ED .STK-MED ONE 03/17 1408 DE Teaching ED 03/17 1409 Polyethylene Glycol 17 GM DAILY 03/15 1603 03/16 PO 0913 Sodium Chloride 1,000 ML Q10H 03/14 2330 03/17 IV 0151 Last 24 Hrs of Lab/Bi Results Last 24 Hrs of Labs/Mics: Laboratory Tests 03/17/17 0640: Anion Gap 8, Estimated GFR > 60, BUN/Creatinine Ratio 18.3, Iron 21 L, TIBC 359 , Ferritin 46.3, CBC w Diff NO MAN DIFF REQ, RBC 3.69 L, MCV 69.9 L, MCH 22.2 L, RDW 25.7 H, MPV 7.7, Gran % 57.2, Lymphocytes % 34.0, Monocytes % 6.9, Eosinophils % 1.4, Basophils % 0.5, Absolute Granulocytes 4.3, Absolute Lymphocytes 2.6, Absolute Monocytes 0.5, Absolute Eosinophils 0.1, Absolute Basophils 0, PUBS MCHC 31.8 L Assessment/Plan Assessment: Patient is a 21-year-old female with history of normal vaginal delivery s/p post , x 9 days, presented with chief complaints of fever, lower back pain, dysuria since 4-5 days Vital signs-temperature 97.6, pulse 50, respiratory rate 20, blood pressure 102/ 60, SPO2 96% on room air CT abdomen and pelvis-probable cystitis/endometritis Plan - cystitis with gram-negative septicemia - * continue IV antibiotic-ceftriaxone * We will stop metronidazole as the patient is growing gram negative rods, not anareobic. * Urine culture and blood culture is growing gram-negative rods. * Patient is still complaining of pain in the right side of the abdomen. We will do ultrasound of kidney to rule out any obstruction. * Tylenol when necessary for fever and pain * Toradol for moderate to severe pain * Avoid opiates for pain as it may transfer to breastmilk and affect the * We will decreased IV fluids * Strict intake output charting * Zofran as needed for nausea * Vital signs every shift * Remained afebrile overnight * WBC count trending down Headache under evaluation Patient is complaining of generalized headache since 11 days and it is associated with blurring of the vision.In state, patient usually have a hypercoagulable state that maybe chances of CVT or it may be due to ongoing septicemia and meningitis, can be due to epidural injection followed by a blood patch during the delivery. * We will watch for the symptoms. If needed, then CT of head or CT venogram * Tylenol/NSAIDs as needed Juanis Vaginitis Patient is complaining of itching in vaginal area. , did vaginal examination, she thinks that patient started having candidal vaginitis. * We will give 1 dose of Tab fluconazole 150 Mgs Diet-regular diet DVT prophylaxis-ALP S/heparin CODE STATUS-full code Problem List: 1. septicemia 2. Pyelonephritis 3. Mild anemia Pain Ratin Pain Location: Head, lower abdomen, Pain Goal: Remain pain free Pain Plan: Mild to moderate Tomorrow's Labs & Rationales: CBC, BEP follow-up for infection DVT/Prophylaxis: mechanical, pharmacological
[2017-03-17 08:10] LABS: ABSOLUTE GRANULOCYTE CT 4.3 /CUMM (1.4-6.5); ABSOLUTE LYMPH COUNT 2.6 /CUMM (1.2-3.4); ABSOLUTE MONOCYTE COUNT 0.5 /CUMM (0.10-0.60); HEMATOCRIT 25.8 % (37-47); MEAN CORPUSCULAR HGB 22.2 PG (27.0-31.0); MEAN CORPUSCULAR HGB CONC 31.8 G/DL (33.0-37.0); MEAN CORPUSCULAR VOLUME 69.9 FL (81.0-99.0); MEAN PLATELET VOLUME 7.7 FL (7.4-10.4); PLATELET COUNT 287 /CUMM (130-400); RBC DISTRIBUTION WIDTH 25.7 % (11.5-14.5); RED BLOOD CELL CT 3.69 /CUMM (4.20-5.40); WHITE BLOOD CELL COUNT 7.6 /CUMM (4.8-10.8)
[2017-03-17 08:32] LABS: ABSOLUTE BASOPHIL COUNT 0 /CUMM (0.0-0.2); ABSOLUTE EOSINOPHIL COUNT 0.1 /CUMM (0.0-0.7); BASOPHIL % 0.5 % (0.0-2.0); EOSINOPHIL % 1.4 % (0-5); GRANULOCYTE % 57.2 % (42.2-75.2)
--- NOTE | 2017-03-17 11:49 | PN- OBGYN ---
Surgical Brief Attending Note Brief Attending Note: HD#3 pt is resting in bed, c/o no fever siince last night, feels much better, back pain improved, some pressure when urinate, started to have vaginal itching. PE: VSS, Tmax 38.3 around 17:00 yesterday. Abdomen: soft, nontender, uterus firm, fundus below umbilicus, lochia minimal . Ext: DCT (-) Perineum: no edema, no erythema, nl A/P: 21 yo, s/p 11 days ago, admitted for pylonephritis, sepicemia 1. respond to IV antibiotics, WBC down to 7.6 today, management as per medicine team 2. anemia-- encourage iron supplement. 3. pruritus of vagina, likely candidiasis of vagina due to IV antibiotics use, consider diflucan 150mg PO x 1 dose for treatment. 4. pt desires to have PP f/u in our office, phone number given to pt to schedule appt. for 2wks and 6wks PP visit. 5. will f/u.
[2017-03-17 14:34] VITALS: BP 124/70
--- NOTE | 2017-03-17 16:29 | ULTRASOUND REPORT ---
EXAMINATION: US RETROPERITONEAL COMPLETE (RENAL) CLINICAL INFORMATION: Fever, UTI, burning micturition. COMPARISON: CT 03/15/2017 TECHNIQUE: Real-time imaging of the kidneys and bladder. FINDINGS: RIGHT KIDNEY: 12.4 x 4.0 x 5.9 cm (SAG x AP x TRV). The kidney is normal in size, contour, and echogenicity. Renal cortical thickness is normal. No calculi or focal parenchymal lesions. No hydronephrosis. LEFT KIDNEY: 14.1 x 5.5 x 5.0 cm (SAG x AP x TRV). The kidney is normal in size, contour, and echogenicity. Renal cortical thickness is normal. No calculi or focal parenchymal lesions. No hydronephrosis. BLADDER: Minimally distended and suboptimally evaluated. Bilateral ureteral jets are not demonstrated. IMPRESSION: No hydronephrosis or other acute findings identified.
--- NOTE | 2017-03-17 18:19 | Patient Discharge Instructions ---
Discharge Instructions General Discharge Information You were seen/treated for: Urine tract infection and septicemia Special Instructions: -Please follow-up with your PCP within a week of discharge -Please follow-up with the health insurance assessor, your apponitment is tomorrow 03/19/17 -Please take the medication as advised -Please continue pump and dump while your are on antibiotic and pain medication Diet Continue normal diet: Yes Activity Full Activity/No Limits: Yes Acute Coronary Syndrome Inclusion Criteria At DC or during hospital stay patient has or had the following: ACS DIAGNOSIS No Discharge Core Measures Meds if any: Prescribed or Continued at Discharge Meds if any: NOT Prescribed or Continued at Discharge Congestive Heart Failure Inclusion Criteria At DC or during hospital stay patient has or had the following: CHF DIAGNOSIS No Discharge Core Measures Meds if any: Prescribed or Continued at Discharge Meds if any: NOT Prescribed or Continued at Discharge Cerebrovascular accident Inclusion Criteria At DC or during hospital stay patient has or had the following: CVA/TIA Diagnosis No Discharge Core Measures Meds if any: Prescribed or Continued at Discharge Meds if any: NOT Prescribed or Continued at Discharge Venous thromboembolism Inclusion Criteria VTE Diagnosis No VTE Type NONE VTE Confirmed by (Test) NONE Discharge Core Measures - Per Current guidelines, there needs to be overlap - treatment for the first 5 days of Warfarin therapy. - If discharged on Warfarin prior to 5 days of - overlap therapy, the patient will need to be - assessed for post discharge needs including - *Post discharge parental anticoagulation - *Warfarin and/or parental anticoagulation education - *Follow up date to check INR post discharge At least 5 days overlap therapy as Inpatient No Meds if any: Prescribed or Continued at Discharge Warfarin No Note: Overlap Therapy is Warfarin and Anticoagulant Meds if any: NOT Prescribed or Continued at Discharge
--- NOTE | 2017-03-17 18:38 | Discharge Summary ---
Visit Information Visit Dates Admission Date: 03/14/17 Discharge Date: 03/18/17 Hospital Course Course Attending Physician: Juliana Hampton MD Primary Care Physician: JONNA ROSAS,[facility] Hospital Course: Patient is a 21-year-old female with history of normal vaginal delivery s/p post , x 9 days, presented with chief complaints of fever, lower back pain, dysuria since 4-5 days. Vital signs at the time of admission-temperature 99.8, pulse 133, respiratory rate 20, blood pressure 135/84, SPO2 97% on room air Pertinent labs -urine analysis-healthy, protein 100, nitrite positive, leukocyte esterase small, WBC packed, bacteria packed, hemoglobin moderate. WBC 16.4, Granulocyte 86%, band neutrophils 1, alkaline phosphatase 186, Pyelonephritis with gram-negative septicemia due to Escherichia coli We admitted the patient to general medical floor and he started her on IV fluids , antibiotics including ceftriaxone and metronidazole initially and treated symptomatically. We did CT abdomen and pelvis showed bladder wall thickening ? cystitis and uterine wall thickening ?endometritis.Her blood culture and urine culture showed growth of Escherichia coli which was sensitive to most of antibiotic. We stopped metronidazole afterwards.Patient responded to the antibiotics in 48 hours. Her fever subsided but she continues to complain of right upper quadrant pain. We did renal ultrasound which did not showed any signs of hydronephrosis and obstruction. We'll discharge her on oral antibiotics , Augmentin 850 milligrams twice a day for total 14 days. Percocet 1 tab every 6 when necessary for severe pain was started for optimal pain control. Patient was advised to continu pump and dump the breastmilk until she is off antibiotic and pain medication. Juanis vaginitis Patient was complaining of itching and burning after urination. We discussed with coordinator of evaluation and they evaluated the patient and advice for 1 dose of tab Fluconazole 150 milligrams once. Patient requested another dose of fluconazole to be given in case if she needs to take for vaginal candidiasis from antibiotics, 1 dose of Fluconazole 150 milligrams was given. Anemia, probably iron deficiency Hemoglobin 8.2, MCV 69.9, serum iron 21, TIBC 359, ferritin 46, We started patient on iron supplementation. Advised to follow-up with her PCP as an outpatient for further management of iron deficiency anemia. Headache, probably secondary to epidural injection She does not had any neurological deficit.So we gave pain medication according to pain scale.It was subsiding with most of medication.Later we gave floricet, which helped her little bit. Advised to follow-up with PCP for further management. Allergies: Coded Allergies: No Known Allergies (02/17/16) Disposition Summary Disposition Principal Diagnosis: UTI, pyelonephritis with gram-negative septicemia secondary to Escherichia coli Additional Diagnosis: endometritis Vaginal candidiasis Headache secondary to epidural injection Discharge Disposition: home or self care Discharge Instructions General Discharge Information Code Status: Full Code Patient's Diet: Regular Patient's Activity: As tolerated Follow-Up Instructions/Appts: Please follow-up with your PCP within a week of discharge Please follow-up with your coordinator of evaluation in 2 weeks of the discharge Please take the medication as advised Medications at Discharge Discharge Medications: Stop taking the following medications: Ibuprofen (Ibuprofen) 800 MG TABLET ORAL EVERY SIX HOURS NEEDED as needed for UTERINE CRAMPING Qty = 30 Continue taking these medications: Iron Carb,Gl/FA/B12/C/Docusate (Ferralet 90 Tablet) 90 MG-1 MG-12 MCG-120 MG-50 MG TABLET 1 Tablet ORAL DAILY Qty = 90 Comments: NOT GIVEN IN HOSPITAL Start taking the following new medications: Oxycodone HCl/Acetaminophen (Percocet 5-325 MG Tablet) 5 MG-325 MG TABLET 1 Tablet ORAL EVERY SIX HOURS NEEDED as needed for PAIN SCALE 7-10 ( SEVERE) Qty = 15 No Refills Comments: Last Taken: 03/18/17 Time: 10:00 AM Docusate Sodium (Docusate Sodium) 100 MG CAPSULE 100 Milligram ORAL DAILY NEEDED as needed for CONSTIPATION Qty = 30 No Refills Comments: NOT GIVEN IN HOSPITAL Amoxicillin/Potassium Clav (Augmentin 875-125 Tablet) 875 MG-125 MG TABLET 1 Tablet ORAL TWICE DAILY Qty = 19 No Refills Comments: Last Taken: 03/18/17 Time: 1:30 PM Fluconazole (Diflucan) 150 MG TABLET 1 Tablet ORAL GIVE ONCE Qty = 1 No Refills Comments: NOT GIVEN IN HOSPITAL Copies To: AUDREY JAY; ERVIN SALDANA DO
[2017-03-17 21:59] VITALS: BP 110/62
--- NOTE | 2017-03-18 07:26 | PN- Housestaff ---
See Addendum Subjective Follow-up For: Gram-negative septicemia secondary to Escherichia coli UTI Headache Juanis vaginitis Subjective: Patient was seen and examined this morning, lying comfortably in bed, complained of left side lower back pain 7/10, responded well to Percocet overnight and oxycodone. Patient reported on and off heavy menorrhagia. Patient denied any chest pain, palpitation, dizziness, nausea or vomiting. Press Setter was at bedside, patient has a follow up visit tomorrow in the clinic. Patient reported history of diarrhea over the last 2 days, C. difficile test is pending. No diarrhea this morning. Patient is afebrile for the last 24 hours, vital signs are stable temperature 98.5, pulse 60, blood pressure 110/62, saturating 97% on room air Review of Systems Constitutional: Reports: see HPI. Objective Last 24 Hrs of Vital Signs/I&O Vital Signs Date Time Temp Pulse Resp B/P B/P Pulse O2 O2 Flow FiO2 Mean Ox Delivery Rate 03/18 0806 97.6 70 20 118/68 96 Room Air / 2159 98.5 60 20 110/62 97 Room Air 06/05 1434 98.6 73 20 124/70 98 Room Air Intake & Output / 1600 06/06 0800 06/06 0000 Intake Total 880 630 Output Total Balance 880 630 Intake, IV 400 150 Intake, Oral 480 480 Number 1 Bowel Movements Physical Exam General Appearance: Alert, Oriented X3, Cooperative, No Acute Distress Skin: No Rashes, No Breakdown, No Significant Lesion Skin Temp/Moisture Exam: Warm/Dry HEENT: Atraumatic, PERRLA, EOMI, Mucous Membr. moist/pink Neck: Supple, No JVD Cardiovascular: Regular Rate, Normal S1, Normal S2, No Murmurs Lungs: Clear to Auscultation, Normal Air Movement Abdomen: Normal Bowel Sounds, Soft, diffuse tenderness to deep paplation Neurological: Normal Gait, Normal Speech, Strength at 5/5 X4 Ext, Normal Tone, Sensation Intact, Cranial Nerves 3-12 NL, Reflexes 2+ Extremities: No Clubbing, No Cyanosis, Normal Pulses, No Tenderness/Swelling, Bilateral LE trace pedal edema Assessment/Plan Assessment: Patient is a 21-year-old female with history of normal vaginal delivery s/p post , x 9 days, presented with chief complaints of fever, lower back pain, dysuria since 4-5 days Vital signs-temperature 97.6, pulse 50, respiratory rate 20, blood pressure 102/ 60, SPO2 96% on room air CT abdomen and pelvis-probable cystitis/endometritis Plan - cystitis with gram-negative septicemia - * Switch antibiotic to Augmentin first dose now, to finish total of 14 days of antibiotic * Urine culture and blood culture 1 set is growing Escherichia coli, antibiotic was changed according to sensitivity * Patient continued to report left-sided lower back pain, renal ultrasound was obtained yesterday to rule out any urinary obstruction * Start Percocet 1 tab every 6 when necessary for severe pain * Patient continued to pump and dump breastmilk, was advised to continue to do so until she is off antibiotic and pain medication * We will decreased IV fluids * Zofran as needed for nausea * Afebrile, no leukocytosis * Patient reported diarrhea, C. difficile is pending Headache under evaluation * Improved * Patient denied any headache, blurry vision, dizziness, nausea or vomiting today 03/18 * Patient ireported history of generalized headache associated with blurring of the vision * We will watch for the symptoms. If needed, then CT of head or CT venogram * Fioricet PRN for headache Juanis Vaginitis * Improved * Fluconazole 150 Mgs x1 -Patient is for discharge today, she has appointment with her [employer] brm developer tomorrow 03/19/17, was advised to continu pump and dump the breastmilk after she is off antibiotic and pain medication -CT CHARGE POSTER was obtained prior to prescribing Percocet as an outpatient Diet-regular diet DVT prophylaxis-ALP S/heparin CODE STATUS-full code Problem List: 1. Normal vaginal delivery 2. septicemia 3. Vaginal bleeding 4. Mild anemia 5. Menorrhagia 6. UTI (urinary tract infection) Pain Ratin Pain Location: Left lower back pain Pain Goal: Pain 4 or less Pain Plan: Percocet 1 tab every 6 when necessary for severe pain Tomorrow's Labs & Rationales: CBC
[2017-03-18 08:06] VITALS: BP 118/68
[2017-03-18] MEDS ORDERED: PERCOCET 5-3251 EACH PO (10:50)
[2017-03-18] MEDS ORDERED: AUGMENTIN 875-1 EACH PO (10:50)
[2017-03-18] MEDS ORDERED: DOCUSATE SODIU100 M3 PO (10:50)
[2017-03-18] MEDS ORDERED: DIFLUCAN150 M1 PO (11:55)
== END 2017-03-18 15:23 | DRG 561 ==
LOC: ERH 14:50 → ERHI 21:01 → 2NB 21:01 → ENRESERV 22:00 → 2NB 22:30 → ENPENDDIS 03-18 13:43 → 2NB 03-18 15:23
PROVIDERS: Internal Medicine; Physician Assistant; ADMIT Internal Medicine
DX: O85 Puerperal sepsis (principal); O86.22 Infection of bladder following delivery; B37.3 Candidiasis of vulva and vagina; D50.9 Iron deficiency anemia, unspecified; G97.1 Other reaction to spinal and lumbar puncture; Y84.4 Aspiration of fluid as the cause of abnormal reaction of the patient, or of later complication, without mention of misadventure at the time of the procedure; B96.20 Unspecified Escherichia coli [E. coli] as the cause of diseases classified elsewhere
CPT/HCPCS: 2NBP; 36415; 74177; 76775; 81001; 82436; 87040; 87086; 96374; 96375; J0131; J0696; J1885; J2405; J3101; J3490